=== PATIENT | male | born 1955 | race Caucasian/White ===

== ENCOUNTER 2019-10-19 13:49 | Inpatient (IN) | payer OTHER ==
[2019-10-19] MEDS ORDERED: SODIUM CHLORIDE 1,000 ML IV SCH ×2 (14:30→22:20)
[2019-10-19 14:53] LABS: INR 1.07 (0.83-1.09); PROTHROMBIN TIME (PATIENT) 12.6 SEC (9.7-13.0)
[2019-10-19 14:55] LABS: ACTIVATED PTT 29.3 SECONDS (25.2-36.5)
[2019-10-19 15:07] LABS: CHOLESTEROL 193 mg/dL (50-200); HDL CHOLESTEROL 58 mg/dL (40-60); LDL CHOLESTEROL (ONLY SJRH) 153 mg/dL (5-100); TRIGLYCERIDES 113 mg/dL (0-150)
--- NOTE | 2019-10-19 15:14 | PDOC ---
History of Present Illness - General Chief Complaint: CVA/TIA Stated Complaint: R/O SROKE Time Seen by Provider: 10/19/19 14:10 tPA Exclusion Checklist 0-3hr - Time Elapsed Date last known well: 10/18/19 Time last known well: 20:00 Elaspsed time: 1 Day(s) and 0 Hour(s) and 19 Minutes - Thrombolytic Therapy Candidate Is the patient eligible for Thrombolytic Therapy?: No - Ineligibility reason(s) Reasons No tPA given: Outside of window - delayed arrival NIH Stroke Scale - Last Known Well Date/Time & Onset Date Last Known Well: 10/18/19 Time Last Known Well: 20:00 - Initial Evaluation Level of consciousness: Alert Ask patient the month and their age: Answers both correctly Ask patient to open & close eyes; make fist and let go: Obeys both correctly Best gaze (horizontal eye movement): Forced deviation Visual field testing: Complete hemianopia Facial paresis (Show teeth/raise eyebrows/close eyes tight): Complete paralysis of one or both sides (Upper and lower face) Motor Function: Left Arm: Normal Motor Function: Right Arm: Normal (extends arm 90 (or 45) degrees for 10 seconds without drift Motor Function: Left Leg: Normal (extends leg 30 degrees for 5 seconds without drift) Motor Function: Right Leg: Normal (extends leg 30 degrees for 5 seconds without drift) Limb Ataxia: Present in two limbs Sensory(Use pinprick test arms,legs,trunk,face/side to side): Normal Best language (Describe picture, name items, read sentences): No Aphasia Dysarthria (read several words): Mild to moderate slurring of words Extinction and Inattention: No abnormality - Total Score NIH Stroke Scale Score: 10 Past History - Past Medical History Allergies/Adverse Reactions: Allergies Allergy/AdvReac Type Severity Reaction Status Date / Time No Known Allergies Allergy Verified 10/19/19 14:12 Home Medications: Ambulatory Orders Hydrochlorothiazide [Hctz -] 25 mg PO DAILY 10/19/19 COPD: No - Psycho Social/Smoking Cessation Hx Smoking History: Never smoked Information on smoking cessation initiated: No *Physical Exam - Vital Signs Last Vital Signs Temp Pulse Resp BP Pulse Ox 98 F 90 18 167/97 98 10/19/19 14:16 10/19/19 14:06 10/19/19 14:06 10/19/19 14:06 10/19/19 14:40 ED Treatment Course - LABORATORY CBC & Chemistry Diagram: 10/19/19 17:23 10/19/19 14:20 - ADDITIONAL ORDERS Additional order review: Laboratory Results 10/19/19 10/19/19 14:20 14:20 PT with INR 12.60 INR 1.07 PTT (Actin FS) 29.3 Triglycerides 113 Cholesterol 193 Total LDL Cholesterol 153 H HDL Cholesterol 58 10/19/19 14:20 RBC Cancelled MCV Cancelled MCHC Cancelled RDW Cancelled MPV Cancelled Neutrophils % Cancelled Lymphocytes % Cancelled Monocytes % Cancelled Eosinophils % Cancelled Basophils % Cancelled - RADIOLOGY Radiology Studies Ordered: Category Date Time Status SINUS CT WITH CONTRAST [CT] Stat CT Scan 10/19/19 15:11 Ordered Medical Decision Making - Medical Decision Making 10/19/19 15:14 HPI: 64yo M hx HTN (on HCTZ) BIBA from home with 1 brief self-limited episode of vertigo at 1200 yesterday, then gradual onset vertigo, nausea, and NB emesis xmultiple last PM at 1999, woke up this AM with constant vertigo not changed by movement, L-sided facial droop, blurred vision b/l worst in R eye, and L-sided hemianopia. LKN 1999. Last night vertigo was so bad he had trouble walking and had to crawl on hands and knees to bed. States did not have facial or vision problems last PM. Woke up this AM with vertigo and additional sx. Denies dysphagia, diplopia, photophobia, spots in vision, hearing loss, tinnitus, weakness in arms or legs, numbness or tingling, chest pain, palpitations, SOB, diaphoresis. Denies current vertigo or nausea. Denies smoking, cardiac hx, hx stroke, hx vertigo, recent travel, recent illness, sick contacts, cold or flu- like sx, fever, chills, fatigue, headache, numbness/tingling, cough, leg swelling, abdominal pain, blood in stool, diarrhea, constipation, dysuria, hematuria, confusion. Compliant on HCTZ, takes no other medications. PCP - Dr Merida [phone] ROS: Constitutional: Negative for chills, fever, fatigue, diaphoresis. HENT: Negative for sore throat, rhinorrhea, congestion. Eyes: Positive for blurry vision. Negative for visual disturbance. Respiratory: Negative for shortness of breath, cough, and wheezing. Cardiovascular: Negative for chest pain, palpitations, and leg swelling. Gastrointestinal: Positive for nausea and vomiting. Negative for abdominal pain, blood in stool, constipation, diarrhea. Genitourinary: Negative for dysuria, flank pain, and hematuria. Musculoskeletal: Negative for myalgias, back pain, and neck pain. Skin: Negative for rash. Neurological: Positive for vertigo, difficulty walking, L-sided facial droop, blurry vision, L-sided hemianopia. Negative for syncope, numbness and headaches. Psychiatric/Behavioral: Negative for behavioral problems and confusion. PE: Gen: Alert, NAD, comfortable-appearing. HEENT: PERRL, inability to abduct L eye and extreme difficulty in R eye abduction, dry MM, NCAT. No conjunctival pallor. Sclera are non-icteric. Oropharynx is clear. CV: Regular rate and rhythm. No murmurs, rubs, or gallops. PULM: No resp distress. CTAB, no wheezes, rales, or rhonchi. ABD: soft, NT/ND, no rebound tenderness or guarding, no CVA tenderness. BACK: No TTP of c/t/l-spine. No step-offs or deformities. MSK: No bony deformities. 2+ pulses in all extremities. NEURO: AAOx3. PERRL. CN 2-12 evaluated and not all intact: noted deficits are L homonymous hemianopia, complete L-sided facial paralysis (sensation intact), inability to abduct L eye and extreme difficulty in R eye abduction (can abduct momentarily then appears to be pulled back to center), difficult to assess tongue deviation due to facial droop. 5/5 strength in all extremities. No drift of legs or arms. Sensation to light touch intact in all extremities. No pronator drift. + bilateral dysmetria. +bilateral rotary nystagmus. Due to pt's diffi culty seeing/focusing on stationary object, unable to perform head impulse and test of skew deviation. EXTREMITIES: No cyanosis. No clubbing. No edema. No calf tenderness. PSYCH: Normal mood and thought pattern. SKIN: Warm and dry. Normal capillary refill. No rashes. No jaundice. MDM: 64yo M hx HTN BIBA from home with 1 brief self-limited episode of vertigo at 1200 yesterday, then gradual onset vertigo, nausea, and emesis xfew last PM at 1999, woke up this AM with vertigo, L-sided facial droop, blurred vision b/l, and L-sided hemianopia. LKN 1999. Hemodynamically stable, afebrile, no motor or sensory deficits in extremities, rotary nystagmus b/l, bilateral dysmetria, L-sided complete facial droop, L- sided homonymous hemianopia, inability to abduct L eye and extreme difficulty in R eye abduction, sensation intact, difficult to assess tongue deviation HINTS exam difficult to perform due to pt's inability to focus on object (my nose) in front of him. +rotary nystagmus, unable to perform head impulse and test of skew deviation. Exam consistent with palsy of L sack maker and VII, in addition to L-sided hemianopia, possible tongue deviation (possible CN XII deficit), and vestibular signs (possible CN VIII dysfunction vs cerebellar dysfunction). High concern for stroke including posterior cerebellar or brainstem. Also consider ICH/SAH, cavernous sinus thrombosis, aneurysm, metabolic derangement, vitamin deficiencies, anemia, Lyme, herpes zoster, malignancy/mass. Code quintero called. NIHSS prior to CTH and after CTH same: 10 -Not a TPA candidate due to outside window -CTH reviewed: mild volume loss and mild to moderate ventricular dilatation w/o CT e/o acute intracranial pathology. Correlate clinically to determine further evaluation and f/u. Mild chronic sinusitis. -EKG: NSR, 90bpm, normal intervals, normal axis, no e/o acute ischemia -CBC,CMP,Coags,Lipid profile,Cardiac profile,UA,T&S,Mg,Phos,ESR,CRP,TSH -optical scientist -Lyme -IVF -Consult neuro -Dispo: likely admit vs transfer pending w/u Spoke with Dr Singleton, recommended CT sinus venogram to r/o cavernous sinus thrombosis Spoke with Dr Soto about concern for brainstem or posterior cerebellar stroke - stated based on clinical concern, we could get MRI stroke protocol (limited faster study). -MRI stroke protocol -CT sinuses venogram to r/o cavernous sinus thrombosis 10/19/19 16:52 No changes. Pt comfortable. Took pt to MRI. 10/19/19 17:26 Exam unchanged. Pt states he is comfortable. MRI done. Took pt to CT. Rubin additional labs. 10/19/19 18:[address] Rangel on phone - appreciated update, agrees with admission. MRI reviewed: multiple acute infarctions in L cerebellar hemisphere, multiple infarctions in R and L occipital lobes more prominent in R side, infarcts most probably embolic in origin. Also noted ischemic chronic changes in white matter of both cerebral hemispheres sequela most probably to HTN or small vessel atherosclerosis. -Aspirin: given by me, pt swallowed sip of water and aspirin without difficulty, no gurgling or drooling or choking. -MRA w/o contrast -Cancel CT sinuses venogram due to known etiology of sx, per discussion between team and Dr Pinto -Not a candidate for thrombectomy Saw pt with Neurologist Dr Pinto. Involved nerves CN 6, 7, 10, 12: L-sided complete facial paralysis, homonymous hemianopia, no gag reflex (by tongue depressor), tongue deviation to right -Start heparin drip, per recommendation of Dr Pinto (no bolus, just drip), due to presumed embolic origin of infarcts. Discussed with pt. 10/19/19 19:08 Signed out to admitting team. Hemodynamically stable, no neurologic changes or new sx or nausea/vomiting/vertigo since arrival in ED. Pertinent neuro deficits: L-sided complete facial paralysis, L-sided homonymous hemianopia, no gag reflex, tongue deviation to right, slight dysarthria likely 2/2 L-sided facial paralysis. 10/19/19 20:19 CXR reviewed: no acute pathology Discharge - Discharge Information Problems reviewed: Yes Clinical Impression/Diagnosis: New cerebellar infarct Condition: Fair - Admission Yes - Follow up/Referral Referrals: ON STAFF,NOT [Primary Care Provider] - - Patient Discharge Instructions - Post Discharge Activity
[2019-10-19 15:24] LABS: ALBUMIN 3.9 g/dl (3.4-5.0); ALK PHOS 80 U/L (45-117); ANION GAP 8 MMOL/L (8-16); BILIRUBIN,TOTAL 0.7 mg/dL (0.2-1); BLOOD UREA NITROGEN 15.3 mg/dL (7-18); CHLORIDE 99 mmol/L (98-107); CO2 29 mmol/L (21-32); CREATININE 1.1 mg/dL (0.55-1.3); GLUCOSE,RANDOM 132 mg/dL (74-106); SGOT/AST 58 U/L (15-37); SGPT/ALT 30 U/L (13-61); SODIUM 136 mmol/L (136-145); TOT PROT 8.7 g/dl (6.4-8.2)
[2019-10-19] MEDS ORDERED: SODIUM CHLORIDE 0.9% 500 ML INFUS.BAG IV ONE ×2 (16:03→18:13)
--- NOTE | 2019-10-19 17:03 | PDOC ---
Documentation entered by Porsha Levine SCRIBE, acting as scribe for Ajith Arce MD. Ajith Arce MD: This documentation has been prepared by the Abner schaffer Adrianna, SCRIBE, under my direction and personally reviewed by me in its entirety. I confirm that the documentation accurately reflects all work, treatment, procedures, and medical decision making performed by me. Attending Attestation - Resident Resident Name: Sissy Madison - ED Attending Attestation I have performed the following: I have examined & evaluated the patient, The case was reviewed & discussed with the resident, I agree w/resident's findings & plan, Exceptions are as noted - HPI HPI: The patient is a 64 year old male, with a significant PMH of HTN, presents with vertigo since noon yesterday. Patient complains of sudden-onset room-spinning dizziness yesterday afternoon. Last night around 8pm, the patient additionally developed left-sided facial droop with changes in vision. Allergies: NKA, NKDA Surgical History: None reported Social History: No toxic habits PCP: NOS - Physicial Exam PE: 10/19/19 16:57 Patient is awake and alert, well-nourished, in no significant distress Normocephalic, atraumatic + Left facial palsy involving forehead, periorbital structures, left lower face and left perioral structures; + left abducens nerve palsy; rotatory nystagmus bilaterally No JVD, no carotid bruits CTA, RRR Motor is five 5 x 4; no pronation drift; Babinski is negative; - Medical Decision Making 10/19/19 17:02 64-year-old male with history of hypertension presents with left cranial nerve and VII palsies. Differential diagnosis includes CVA versus new onset diabetes versus Lyme disease. Will obtain CT of head followed by stat MRI. Will consider CT of sinuses with venous phase contrast to rule out cavernous sinus thrombosis. Case discussed with Dr. Gardner of neurology. Likely admission.
[2019-10-19] MEDS ORDERED: ASPIRIN 325 MG TABLET PO ONE (17:38)
[2019-10-19] MEDS ORDERED: ASPIRIN 325 MG ENTERIC COATED TABLET (FP) ONE (17:40)
[2019-10-19 18:02] LABS: MAGNESIUM 1.8 mg/dL (1.8-2.4); PHOSPHOROUS 2.1 mg/dL (2.5-4.9)
[2019-10-19 18:05] LABS: BASO % 0.2 % (0-2.0); HEMATOCRIT 46.2 % (35.4-49); HEMOGLOBIN 15.1 GM/dL (11.7-16.9); MCHC 32.8 g/dl (32.0-35.9); MEAN CELL VOLUME 85.5 fl (80-96); MEAN PLT VOLUME 8.3 fl (7.5-11.1); MONO % 5.7 % (3.8-10.2); NEUT % 77.1 % (42.8-82.8); PLATELET COUNT 220 K/MM3 (134-434); RBC 5.41 M/mm3 (4.00-5.60); RDW 14.1 % (11.9-15.9); WHITE BLOOD COUNT 15.9 K/mm3 (4.0-10.0)
[2019-10-19] MEDS ORDERED: HEPARIN NA (PORCINE) 5,000 UNITS/ML 1ML VIAL IVPUSH PRN ×2 (18:19)
[2019-10-19] MEDS ORDERED: HEPARIN INFUSION - 25,000 UNITS/500 ML INFUS.BAG IVPB ONE (18:44)
--- NOTE | 2019-10-19 18:48 | CON.NEURO ---
Consult Consult Specialty:: [facility] Referred by:: ER Reason for Consultation:: CVA - History of Present Illness History of Present Illness: this is a very pleasant 64-year-old right-handed man with history of high blood pressure no history of smoking presented to the emergency room with a chief complaint of sudden onset of spinning sensation and dizziness. I spoke to the emergency room physician patient was not a candidate for TPA stroke protocol was initiated patient was noted with left facial droop. Patient was also noted with double vision. Patient was seen in the emergency room stepwise hemodynamically was stable CAT scan was noted we did an MRI of the brain. - History Source History Provided By: Patient Limitations to Obtaining History: No Limitations - Smoking History Smoking history: Never smoked Home Medications - Allergies Allergies/Adverse Reactions: Allergies Allergy/AdvReac Type Severity Reaction Status Date / Time No Known Allergies Allergy Verified 10/19/19 14:12 Family Medical History Family History: Unremarkable Review of Systems - Review of Systems Neurological: reports: Headache, Incoordination, Numbness, Parasthesia Physical Exam-Neuro Vital Signs: Vital Signs Temperature 98 F 10/19/19 14:16 Pulse Rate 86 10/19/19 16:14 Respiratory Rate 20 10/19/19 16:14 Blood Pressure 148/92 10/19/19 16:14 O2 Sat by Pulse Oximetry (%) 100 10/19/19 16:14 Constitutional: Yes: Well Nourished Neck: Yes: WNL Cardiovascular: Yes: WNL Respiratory: Yes: WNL Labs: CBC, BMP 10/19/19 17:23 10/19/19 14:20 INR, PTT INR 1.07 (0.83-1.09) 10/19/19 14:20 - Neuro Exam Level Of Consciousness: Yes: Oriented to Person, Oriented to Place, Oriented to Time Eyes: Yes: PERRLA Speech: WNL Dominant Hand: Right Cranial Nerves II-XII Intact: No (lleft sixth nerve palsy. LeftVII nerve biopsy no gag positive left homonymous) Gag: Present DTR's: 1+ Left Bicep, 1+ Right Bicep, 1+ Left Tricep, 1+ Right Tricep, 1+ Left Brachioradialis, 1+ Right Brachioradialis Response to light touch: Normal Response to pain prick: Normal Response to temperature: Normal Imaging - Results X-ray: Image Reviewed Cat Scan: Image Reviewed MRI: Image Reviewed Problem List - Problems (1) New cerebellar infarct Code(s): I63.9 - CEREBRAL INFARCTION, UNSPECIFIED Assessment/Plan mRI consistent with multiple embolic strokeprobably cardiac source rule out cardiac arrhythmia that involves the left 6 and 7 cranial nerve exiting the pontine region right occipital stroke with homonymous hemianopsia i decided not to do CT angiogram because the patient is not a candidate for thrombectomy 1. Rule out embolic stroke 2. Stroke prevention 1. IV heparin bolus keep the PTT between 50 and 70 . RHEA . Physical therapy . Nothing by mouth . Speech and swallow evaluation 6. MRA of the brain and neck 7. Homocystine level. 8. Holter monitor Thank you very much for allowing me to be part of this patient neurological care Pamella Pinto M.D., MSc [facility] [address] [place] [address] Office
[2019-10-19] MEDS: HEPARIN INFUSION - 25,000 UNITS/500 ML INFUS.BAG IVPB SCH (18:58)
--- NOTE | 2019-10-19 20:11 | PN ---
Teaching Attending Note Name of Resident: Leeanne Hussein ATTENDING PHYSICIAN STATEMENT I saw and evaluated the patient. I reviewed the resident's note and discussed the case with the resident. I agree with the resident's findings and plan as documented. SUBJECTIVE: 64-year-old male with history of hypertension complained of vertigo which started on 10/17 around noon, associated with ataxia and later developed left facial droopiness and some blurry vision. Patient continued to go back with his daily activities including going to work. The next day developed some nausea and vomiting and then was prompted to seek medical attention by his daughter. Patient denied any focal weaknesses or loss of sensation but reports that he does feel unsteady on his feet when walking.Dr. Gardner was consulted from the emergency room.Patient was a code quintero in the emergency room, was not a candidate for TPA. OBJECTIVE: Last Vital Signs Temp Pulse Resp BP Pulse Ox 98 F 81 18 148/72 97 10/20/19 01:30 10/20/19 01:30 10/20/19 01:30 10/20/19 01:30 10/19/19 22:30 On physical exam patient was not in any acute distress. He had left lateral rectus muscle palsy, unable to perform gaze to left. Left upper and lower facial muscle paralysis. Sensation face was intact bilaterally.Motor was 5 out of 5 in all extremities, gross sensation intact in all extremities. Negative for patellar, bicipital hyperreflexia. Negative Babinski signs bilaterally. Normal [id number] and fitch test bilaterally. NIH stroke scale initially in the ER was 9. Abnormal Lab Results 10/19/19 10/19/19 10/19/19 14:20 14:20 17:23 WBC 15.9 H Absolute Neuts (auto) 12.3 H PTT (Actin FS) Random Glucose 132 H Phosphorus 2.1 L AST 58 H C-Reactive Protein Total Protein 8.7 H Total LDL Cholesterol 153 H 10/19/19 10/20/19 17:23 00:35 WBC Absolute Neuts (auto) PTT (Actin FS) 37.7 H Random Glucose Phosphorus AST C-Reactive Protein 0.7 H Total Protein Total LDL Cholesterol Imaging studies were reviewedbrain MRImultiple acute infarctsleft cerebellar hemisphere, multiple infarctions in the right and left supra lobes more prominent on the right side. These infarcts are probably embolic in origin EKG showed Normal sinus rhythm ASSESSMENT AND PLAN: 64-year-old male with bilateral cerebellar embolic strokes as described above with new neurological deficits as described in physical exam. Already evaluated by neurology and admitted to stroke unit. Admit to stroke unit Neurology consult Transthoracic echo N.p.o. Permissive hypertension Aspirin High-dose statin Aggressive physical therapy Speech and swallow evaluation Neurochecks every 4 hours Carotid Doppler bilaterally Started on anticoagulation with heparin drip
--- NOTE | 2019-10-19 21:36 | HP ---
CHIEF COMPLAINT: Dizziness, facial droop PCP:Dr. Merida HISTORY OF PRESENT ILLNESS: 64M PMH HTN who presents today after 1 day of dizziness and new onset facial droop. Patient reports going home on 10/17 for lunch break and feeling not like himself and some dizziness. He was able to return to work and finish his duties. He returned home between 5-6pm on 10/17 and at that time he describes the room to be spinning and shortly thereafter he began to vomit. He called his daughter to come visit him and help, and by the time she arrived he was unable to walk and had to crawl to the door to let her in. He had numerous episodes of NBNB emesis and eventually fell asleep. He woke up today and his daughter noted new left sided facial droop which prompted them to come to the ED. He also notes having blurry vision which began last night. He denies any chest pain, shortness of breath, nausea, vomiting, diarrhea, paresthesias, or numbness. He has never had this constellation of symptoms occur before. ER course was notable for: (1) CT head was completed- no acute pathology noted. Brain MRI done- multiple acute infarctions: left cerebellar hemisphere, multiple infarcts right and left occipatal lobes. (2) NIH stroke scale completed by ED was 10 (3) Brain MRA was completed which showed: Unremarkable MR angiogram of the head/[place] Recent Travel: None PAST MEDICAL HISTORY: HTN FAMILY MEDICAL HISTORY: CVA, HTN in mother's side. 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 Lives alone at home. Allergies No Known Allergies Allergy (Verified 10/19/19 14:12) HOME MEDICATIONS: Home Medications Medication Instructions Recorded Hydrochlorothiazide [Hctz -] 25 mg PO DAILY 10/19/19 REVIEW OF SYSTEMS CONSTITUTIONAL: Absent: fever, chills, diaphoresis, generalized weakness, malaise, loss of appetite, weight change HEENT: Absent: rhinorrhea, nasal congestion, throat pain, throat swelling, difficulty swallowing, mouth swelling, ear pain, eye pain, visual changes CARDIOVASCULAR: Absent: chest pain, syncope, palpitations, irregular heart rate, lightheadedness, peripheral edema RESPIRATORY: Absent: cough, shortness of breath, dyspnea with exertion, orthopnea, wheezing, stridor, hemoptysis GASTROINTESTINAL: Absent: abdominal pain, abdominal distension, nausea, vomiting, diarrhea, constipation, melena, hematochezia GENITOURINARY: Absent: dysuria, frequency, urgency, hesitancy, hematuria, flank pain, genital pain MUSCULOSKELETAL: Absent: myalgia, arthralgia, joint swelling, back pain, neck pain SKIN: Absent: rash, itching, pallor HEMATOLOGIC/IMMUNOLOGIC: Absent: easy bleeding, easy bruising, lymphadenopathy, frequent infections ENDOCRINE: Absent: unexplained weight gain, unexplained weight loss, heat intolerance, cold intolerance NEUROLOGIC: Present: dizziness, unsteady gait Absent: headache, focal weakness or paresthesias, seizure, mental status changes, bladder or bowel incontinence PSYCHIATRIC: Absent: anxiety, depression, suicidal or homicidal ideation, hallucinations. PHYSICAL EXAMINATION Vital Signs - 24 hr 10/19/19 10/19/19 10/19/19 14:06 14:16 14:40 Temperature 98 F Pulse Rate 90 Pulse Rate [ Right Radial] Respiratory 18 Rate Blood Pressure 167/97 Blood Pressure [Left Arm] O2 Sat by Pulse 100 98 Oximetry (%) 10/19/19 16:14 Temperature Pulse Rate Pulse Rate [ 86 Right Radial] Respiratory 20 Rate Blood Pressure Blood Pressure 148/92 [Left Arm] O2 Sat by Pulse 100 Oximetry (%) GENERAL: Awake, alert, and fully oriented, in no acute distress. HEAD: Normal with no signs of trauma. EYES: Pupils equal, round and reactive to light, lateral gaze palsy. EARS, NOSE, THROAT: Ears normal, nares patent, oropharynx clear without exudates. Moist mucous membranes. NECK: Normal range of motion, supple without lymphadenopathy, JVD, or masses. LUNGS: CTAB HEART: Regular rate and rhythm, normal S1 and S2 without murmur, rub or gallop. ABDOMEN: Soft, nontender, not distended, normoactive bowel sounds, no guarding, no rebound, no masses. MUSCULOSKELETAL: Normal range of motion at all joints. No bony deformities or tenderness. No CVA tenderness. UPPER EXTREMITIES: 2+ pulses, warm, well-perfused. No cyanosis. No clubbing. No peripheral edema. LOWER EXTREMITIES: 2+ pulses, warm, well-perfused. No calf tenderness. No peripheral edema. NEUROLOGICAL: Cranial Nerve palsy, Cranial nerve VII palsy on the left side. Dysarthric. Left sided partial hemianopia. NIH 9 PSYCHIATRIC: Cooperative. Good eye contact. Appropriate mood and affect. SKIN: Warm, dry, normal turgor, no rashes or lesions noted, normal capillary re fill. Laboratory Results - last 24 hr 10/19/19 10/19/19 10/19/19 14:20 14:20 14:20 WBC Cancelled Corrected WBC (auto) Cancelled RBC Cancelled Hgb Cancelled Hct Cancelled MCV Cancelled MCH Cancelled MCHC Cancelled RDW Cancelled Plt Count Cancelled MPV Cancelled Absolute Neuts (auto) Cancelled Neutrophils % Cancelled Lymphocytes % Cancelled Monocytes % Cancelled Eosinophils % Cancelled Basophils % Cancelled Nucleated RBC % Cancelled Platelet Estimate Cancelled Platelet Comment Cancelled ESR PT with INR 12.60 INR 1.07 PTT (Actin FS) 29.3 Sodium Potassium Chloride Carbon Dioxide Anion Gap BUN Creatinine Est GFR (CKD-EPI)AfAm Est GFR (CKD-EPI)NonAf POC Glucometer Random Glucose Calcium Phosphorus Magnesium Total Bilirubin AST ALT Alkaline Phosphatase Creatine Kinase Creatine Kinase Index CK-MB (CK-2) Troponin I C-Reactive Protein Total Protein Albumin Triglycerides 113 Cholesterol 193 Total LDL Cholesterol 153 H HDL Cholesterol 58 TSH Blood Type Antibody Screen 10/19/19 10/19/19 10/19/19 14:20 14:53 17:23 WBC 15.9 H Corrected WBC (auto) RBC 5.41 Hgb 15.1 Hct 46.2 MCV 85.5 MCH 28.0 MCHC 32.8 RDW 14.1 Plt Count 220 MPV 8.3 Absolute Neuts (auto) 12.3 H Neutrophils % 77.1 Lymphocytes % 17.0 Monocytes % 5.7 Eosinophils % 0.0 Basophils % 0.2 Nucleated RBC % 0 Platelet Estimate Platelet Comment ESR PT with INR INR PTT (Actin FS) Sodium 136 Potassium 5.0 Chloride 99 Carbon Dioxide 29 Anion Gap 8 BUN 15.3 Creatinine 1.1 Est GFR (CKD-EPI)AfAm 81.79 Est GFR (CKD-EPI)NonAf 70.57 POC Glucometer Random Glucose 132 H Calcium 9.0 Phosphorus 2.1 L Magnesium 1.8 Total Bilirubin 0.7 AST 58 H ALT 30 Alkaline Phosphatase 80 Creatine Kinase 219 Creatine Kinase Index 1.0 CK-MB (CK-2) 2.2 Troponin I < 0.02 C-Reactive Protein Total Protein 8.7 H Albumin 3.9 Triglycerides Cholesterol Total LDL Cholesterol HDL Cholesterol TSH 2.40 Blood Type O POSITIVE Antibody Screen Negative 10/19/19 10/19/19 10/19/19 17:23 17:23 21:02 WBC Corrected WBC (auto) RBC Hgb Hct MCV MCH MCHC RDW Plt Count MPV Absolute Neuts (auto) Neutrophils % Lymphocytes % Monocytes % Eosinophils % Basophils % Nucleated RBC % Platelet Estimate Platelet Comment ESR 12 PT with INR INR PTT (Actin FS) Sodium Potassium Chloride Carbon Dioxide Anion Gap BUN Creatinine Est GFR (CKD-EPI)AfAm Est GFR (CKD-EPI)NonAf POC Glucometer 128 Random Glucose Calcium Phosphorus Magnesium Total Bilirubin AST ALT Alkaline Phosphatase Creatine Kinase Creatine Kinase Index CK-MB (CK-2) Troponin I C-Reactive Protein 0.7 H Total Protein Albumin Triglycerides Cholesterol Total LDL Cholesterol HDL Cholesterol TSH Blood Type Antibody Screen ASSESSMENT/PLAN: 64 M PMH HTN presenting with CVA affecting CN and VII. 1) CVA - Head CT negative - Brain MRI shows multiple acute infarctions, left cerebellar hemisphere, multiple infarcts right and left occipital lobes. - Brain MRA unremarkable as per preliminary read - Permissive HTN, keep BP <180 for first 24 hours - Holding home medication of HCTZ, will restart BP meds when appropriate - Echo to rule out cardiogenic cause - Carotid doppler - Continous caridac monitoring. May require home holter monitor - Homocysteine level - Speech and Swallow evaluation - Physical Therapy ordered - NPO - Neurochecks Q4H - Aspirin 325 given, continue ASA 81 mg - Atorvastatin 80 mg HS given. Continue - Started on IV Heparin drip, high suspicion emoblic stroke due to underlying arrythmia. - Neurology consulted- Dr. Pinto. Appreciate recs 2) Hx of HTN - Holding meds, will continue to monitor - Restart when appropriate DVT: Heparin Drip Started F: NS @ 75 ml/hr E: Monitor CMP N: NPO until swallow evaluation Dispo: Admitted to telemetry unit. Visit type - Emergency Visit Emergency Visit: Yes ED Registration Date: 10/19/19 Care time: The patient presented to the Emergency Department on the above date and was hospitalized for further evaluation of their emergent condition. - New Patient This patient is new to me today: Yes Date on this admission: 10/19/19 - Critical Care Critical Care patient: No ATTENDING PHYSICIAN STATEMENT I saw and evaluated the patient. I reviewed the resident's note and discussed the case with the resident. I agree with the resident's findings and plan as documented. SUBJECTIVE: OBJECTIVE: ASSESSMENT AND PLAN:
[2019-10-19] MEDS: ATORVASTATIN CA 80 MG TABLET (FP) PO SCH (22:12)
[2019-10-19] MEDS ORDERED: ATORVASTATIN CA 80 MG TABLET (FP) ONE (22:15)
[2019-10-19] MEDS ORDERED: SODIUM PHOSPHATE - 15 MM in SODIUM CHLORIDE 250 ML IVPB ONE (22:20)
[2019-10-20 01:06] VITALS: BMI 32.8
--- NOTE | 2019-10-20 01:45 | PN.NIHSS ---
NIH Stroke Scale - Last Known Well Date/Time & Onset Date Last Known Well: 10/18/19 Time Last Known Well: 17:00 - Initial Evaluation Level of consciousness: Alert Ask patient the month and their age: Answers both correctly Ask patient to open & close eyes; make fist and let go: Obeys one correctly Best gaze (horizontal eye movement): Forced deviation Visual field testing: Partial hemianopia Facial paresis (Show teeth/raise eyebrows/close eyes tight): Complete paralysis of one or both sides (Upper and lower face) Motor Function: Left Arm: Normal Motor Function: Right Arm: Normal (extends arm 90 (or 45) degrees for 10 seconds without drift Motor Function: Left Leg: Normal (extends leg 30 degrees for 5 seconds without drift) Motor Function: Right Leg: Normal (extends leg 30 degrees for 5 seconds without drift) Limb Ataxia: No ataxia Sensory(Use pinprick test arms,legs,trunk,face/side to side): Normal Best language (Describe picture, name items, read sentences): Mild to moderate aphasia Dysarthria (read several words): Mild to moderate slurring of words Extinction and Inattention: No abnormality - Total Score NIH Stroke Scale Score: 9
[2019-10-20 07:36] LABS: BASO % 0.4 % (0-2.0); EOS % 1.4 % (0-4.5); HEMATOCRIT 39.6 % (35.4-49); HEMOGLOBIN 13.5 GM/dL (11.7-16.9); LYMPH % 29.5 % (8-40); MCH 28.5 pg (25.7-33.7); MCHC 34.1 g/dl (32.0-35.9); MEAN CELL VOLUME 83.7 fl (80-96); MEAN PLT VOLUME 8.6 fl (7.5-11.1); MONO % 7.7 % (3.8-10.2); PLATELET COUNT 209 K/MM3 (134-434); RBC 4.73 M/mm3 (4.00-5.60); RDW 14.1 % (11.9-15.9); WHITE BLOOD COUNT 12.5 K/mm3 (4.0-10.0)
[2019-10-20 08:04] LABS: ALBUMIN 3.3 g/dl (3.4-5.0); BILIRUBIN,TOTAL 0.9 mg/dL (0.2-1); BLOOD UREA NITROGEN 14.6 mg/dL (7-18); CALCIUM 8.5 mg/dL (8.5-10.1); CREATININE 0.9 mg/dL (0.55-1.3); PHOSPHOROUS 3.1 mg/dL (2.5-4.9); POTASSIUM 3.1 mmol/L (3.5-5.1); TOT PROT 6.8 g/dl (6.4-8.2)
[2019-10-20] MEDS: ASPIRIN COATED 81 MG TABLET.EC PO SCH (10:12)
[2019-10-20] MEDS: KCL 10 MEQ IVPB 10 MEQ/100 ML INFUS.BAG IVPB SCH ×3 (10:17→12:26)
--- NOTE | 2019-10-20 11:13 | CONSULT ---
Admitting History and Physical - Primary Care Physician PCP: Clemencia Barrow - Admission History of Present Illness: Per EMR- 64M PMH HTN who presents today after 1 day of dizziness and new onset facial droop. Patient reports going home on 10/17 for lunch break and feeling not like himself and some dizziness. He was able to return to work and finish his duties. He returned home between 5-6pm on 10/17 and at that time he describes the room to be spinning and shortly thereafter he began to vomit. He called his daughter to come visit him and help, and by the time she arrived he was unable to walk and had to crawl to the door to let her in. He had numerous episodes of NBNB emesis and eventually fell asleep. He woke up today and his daughter noted new left sided facial droop which prompted them to come to the ED. He also notes having blurry vision which began last night. He denies any chest pain, shortness of breath, nausea, vomiting, diarrhea, paresthesias, or numbness. He has never had this constellation of symptoms occur before. ER course was notable for: (1) CT head was completed- no acute pathology noted. Brain MRI done- multiple acute infarctions: left cerebellar hemisphere, multiple infarcts right and left occipatal lobes. (2) NIH stroke scale completed by ED was 10 (3) Brain MRA was completed which showed: Unremarkable MR angiogram of the head/[place] Per neurology-MRI consistent with multiple embolic stroke, probably cardiac source rule out cardiac arrhythmia that involves the left 6 and 7 cranial nerve exiting the pontine region right occipital stroke with homonymous hemianopsia At present, pt moving all extremities, speech/language WNL. He denies double vision. He sees well with left eye in isolation but "blurry" with right eye in isolation. He is missing his RX glasses which he needs to see. Family called and they dont have them. Reviewed with RN- to call ED/radiology. The glasses are [employer] with prescription. History Source: Patient, Medical Record Limitations to Obtaining History: No Limitations - Smoking History Smoking history: Never smoked Have you smoked in the past 12 months: No - Alcohol/Substance Use Hx Alcohol Use: No History - Admission Reason For Visit: NEW INFARCTION OF CEREBELLUM - Diagnostics X-ray: Report Reviewed CT Scan: Report Reviewed MRI: Report Reviewed - General Mental Status: Alert and Oriented, Awake and Alert, Able to Follow Commands Attention: Intact Ability to Follow Directions: Excellent Head/Neck Control: WFL - Hearing Hearing: Functional Hearing: Normal Hearing Aide: No With Patient: No Speech Evaluation - Communication Primary Language: [place] Oral Expression Ability: Yes: Mild Impairment (let facial complete para) - Speech Production Intelligibility: Yes: Mildly Impaired - Speech Characteristics Voice Loudness: Normal Voice Pitch: Yes: Normal Voice Phonatory-based Quality: Yes: Normal Speech Pattern: Normal Speech Clarity: < 100% Nasal Resonance: Normal Articulation: Yes: Imprecise (slight, sec to left facial) Rate of Speech: Intact - Language/Auditory Comprehension Follows: Yes: 2 Stage Simple Commands Observation: Able to respond to yes/no queries: Yes, Yes/No Confusion: No, Comprehends Conversational Speech: Yes - Language/Verbal Expression Able to Respond to Simple Queries: Yes: WNL Able to Communicate Wants and Needs: Yes: WNL Functional Communication Status: Yes: WNL Attention: Yes: Intact - Memory/Perception intermediate accountant Memory: Yes: WNL Short Term Memory: Yes: WNL - Swallow Evaluation/Bedside Assessment Current Nutritional Intake: NPO Oral Secretions: Yes: WFL Dentition: Yes: Adequate Facial Symmetry at Rest: Facial Droop Left Facial Symmetry on Retraction: Facial Droop Left (no retraction-Left upper/lower facial weakness, unable to close left eye or elevate left eyebrow.) Against Resistance Opening: Normal Against Resistance Closing: Normal Pucker Lips: Droops Left Smile: Droops Left Lingual Movement: Symmetric Lingual Speed of Movement: Normal Lingual Movement Strgth Against Opposition: Normal Lingual Movement Characteristics: Normal Velopharyngeal Movement: Normal Laryngeal Elevation: WFL Laryngeal Movement: Able to Palpate Rate of Intake: WFL Bolus Size: WFL Labial Seal: Impaired Left (No drooling but anterior spillage when drinks) Chewing: Impaired (concern for biting left cheek with mastication, but chewing is efficient) Oral Prep Time: WFL A-P Transit: WFL Timing of Swallow: WFL Coughing/Throat Clear: No Change in Voice: No Recommendations - Speech Evaluation, Impression/Plan Impression: no left facial retraction/pursing-Left upper and lower facial weakness, unable to close left eye or elevate left eyebrow. Concern for biting left cheek with mastication, but chewing is efficient. Swallow is brisk. Voice euphonic. c/o blurry right eye, but RX glassess missing. Good vision with left eye. Identifies fingers bilaterally. - Dysphagia Impressions/Plan Swallowing Skills: WF Dysphagia Impressions: No Impairment *Silent aspiration: cannot be R/O at bedside Dysphagia Treatment Plan: Clear Pocket Food, Trial Feedings, Elevate HOB during feed, OOB for meals, OOB for 1 h. after meals Recommendations: Modified Barium Swallow (only if cough, congestion, fever) - Recommendations Diet Consistency: Dysphagia Minced (trial, Encourage pt to chew on right side) Liquids: Thin Liquids (straw usage to reduce spillage)
[2019-10-20] MEDS ORDERED: POTASSIUM CHLORIDE TABS 20 MEQ TABLET.ER (FP) PO ONE ×2 (14:00→20:00)
--- NOTE | 2019-10-20 14:02 | EKG ---
Test Reason : Blood Pressure : / mmHG Vent. Rate : 090 BPM Atrial Rate : 090 BPM P-R Int : 170 ms QRS Dur : 090 ms QT Int : 382 ms P-R-T Axes : 028 -14 018 degrees QTc Int : 467 ms NORMAL SINUS RHYTHM POSSIBLE LEFT ATRIAL ENLARGEMENT BORDERLINE ECG NO PREVIOUS ECGS AVAILABLE Confirmed by YONATAN ZAMAN, FAVIAN ([id number]) on 10/20/2019 2:01:52 PM Referred By: Confirmed By:FAVIAN TAM MD
--- NOTE | 2019-10-20 15:48 | ECHO ---
Name: JUAN, BETH Exam:Adult Echocardiogram Study Date: 10/20/2019 12:21 PM Age: 64 yrs Reason For Study: r/o cardiogenic source of stroke Height: 67 in Weight: 220 lb BSA: 2.1 m2 MMode/2D Measurements & Calculations IVSd: 1.1 cm Ao root diam: 3.4 cm LVIDd: 5.1 cm LA dimension: 4.5 cm LVIDs: 3.2 cm ACS: 2.0 cm LVPWd: 1.1 cm EDV(Ilsa): 122.4 ml LAV (MOD-bp): 57.0 ml ESV(Ilsa): 42.4 ml TAPSE: 2.3 cm RV S Zhao: 21.8 cm/sec Doppler Measurements & Calculations MV E max zhao: 77.5 cm/sec Ao V2 max: 164.2 cm/sec MV A max zhao: 63.7 cm/sec Ao max P.8 mmHg MV E/A: 1.2 Ao V2 mean: 107.2 cm/sec MV dec time: 0.18 sec Ao mean P.2 mmHg Ao V2 VTI: 30.2 cm LV V1 max P.7 mmHg TR max zhao: 263.3 cm/sec LV V1 mean P.3 mmHg TR max P.7 mmHg LV V1 max: 108.6 cm/sec LV V1 mean: 71.3 cm/sec LV V1 VTI: 21.1 cm PA V2 max: 104.5 cm/sec PI end-d zhao: 89.6 cm/sec PA max P.4 mmHg PA acc slope: 355.1 cm/sec2 PA acc time: 0.16 sec Med Peak E' Zhao: 5.2 cm/sec PA pr(Accel): 7.7 mmHg Med E/e': 15.0 Lat Peak E' Zhao: 9.5 cm/sec Lat E/e': 8.2 Pulm Sys Zhao: 77.5 cm/sec Pulm Segura Zhao: 65.2 cm/sec Pulm S/D: 1.2 Procedure A complete two-dimensional transthoracic echocardiogram was performed (2D, M-mode, Doppler and color flow Doppler). Left Ventricle The left ventricular size, thickness and function are normal. The left ventricular ejection fraction is normal. Ejection Fraction = 60-65%. The left ventricular wall motion is normal. Right Ventricle The right ventricle is normal in size and function. Atria Normal left and right atrial size and function. Mitral Valve There is trace mitral regurgitation. Tricuspid Valve No tricuspid regurgitation. There was insufficient TR detected to calculate RV systolic pressure. Aortic Valve The aortic valve is trileaflet. No hemodynamically significant valvular aortic stenosis. No aortic regurgitation is present. Pulmonic Valve Trace pulmonic valvular regurgitation. Great Vessels The aortic root is normal size. Pericardium/Pleura There is no pericardial effusion. Interpretation Summary The left ventricular size, thickness and function are normal The right ventricle is normal in size and function. There is trace mitral regurgitation. Trace pulmonic valvular regurgitation. MD Mejia Johnson 10/20/2019 03:47 PM
--- NOTE | 2019-10-20 15:54 | PN ---
Progress Note, Physician History of Present Illness: 64-year-old male with PMHx of HTN complained of vertigo which started on 3/ ar ound noon, associated with ataxia and later developed left facial droopiness and some blurry vision. Patient continued to go back with his daily activities including going to work. The next day developed N/V and then sought medical attention. Patient admitted with CVA. Today: Patient seen and examined at bedside in NAD Patient was getting TTE Had no active c/o was alert and conversing. - Current Medication List Current Medications: Active Medications Aspirin (Ecotrin -) 81 mg PO DAILY [facility] Last Admin: 10/20/19 10:12 Dose: 81 mg Documented by: Atorvastatin Calcium (Lipitor -) 80 mg PO HS JOHN PAUL Last Admin: 10/19/19 22:12 Dose: 80 mg Documented by: Heparin Sodium (Porcine) (Heparin -) 1,000 unit IVPUSH PRN PRN PRN Reason: Heparin Heparin Sodium (Porcine) (Heparin -) 5,000 unit IVPUSH PRN PRN PRN Reason: Heparin Last Admin: 10/20/19 01:35 Dose: 5,000 unit Documented by: Heparin Sodium/Dextrose (Heparin Infusion -) 25,000 units in 500 mls @ 20 mls/hr IVPB TITR JOHN PAUL; Protocol Last Titration: 10/20/19 11:50 Dose: 1,150 units/hr, 23 mls/hr Documented by: Sodium Chloride (Normal Saline -) 1,000 mls @ 75 mls/hr IV ASDIR JOHN PAUL - Objective Vital Signs: Vital Signs Temperature 98.1 F 10/20/19 14:00 Pulse Rate 70 10/20/19 14:00 Respiratory Rate 18 10/20/19 14:00 Blood Pressure 150/91 10/20/19 14:00 O2 Sat by Pulse Oximetry (%) 98 10/20/19 09:00 Constitutional: Yes: Well Nourished Cardiovascular: Yes: WNL Respiratory: Yes: WNL Gastrointestinal: Yes: WNL Neurological: Yes: Facial Droop Labs: CBC, BMP 10/20/19 05:33 10/20/19 05:33 INR, PTT INR 1.07 (0.83-1.09) 10/19/19 14:20 Impression/Plan Impression/Plan: 1- CVA Rule out Embolic stroke Neuro on board PT /OT Speech and swallow Holter monitor and Tele monitor TTE ASA 81 mg qd High intensity Statin Heparin drip per neuro recs Can d/c fluids when cleared for diet 2- HTN Monitor BP 3- Supportive care DVT Px- heparin drip as above Visit type - Emergency Visit Emergency Visit: Yes ED Registration Date: 10/19/19 Care time: The patient presented to the Emergency Department on the above date and was hospitalized for further evaluation of their emergent condition. - New Patient This patient is new to me today: Yes Date on this admission: 10/20/19 - Critical Care Critical Care patient: No - Discharge Referral Referred to [facility] Yes
--- NOTE | 2019-10-20 16:05 | EKG ---
Test Reason : Blood Pressure : / mmHG Vent. Rate : 072 BPM Atrial Rate : 072 BPM P-R Int : 156 ms QRS Dur : 084 ms QT Int : 414 ms P-R-T Axes : 026 -21 -01 degrees QTc Int : 453 ms NORMAL SINUS RHYTHM NORMAL ECG WHEN COMPARED WITH ECG OF 19-OCT-2019 14:21, NO SIGNIFICANT CHANGE WAS FOUND Confirmed by FAVIAN TAM MD ([id number]) on 10/20/2019 4:04:34 PM Referred By: Confirmed By:FAVIAN TAM MD
[2019-10-20] MEDS: HEPARIN INFUSION - 25,000 UNITS/500 ML INFUS.BAG IVPB SCH (17:05)
--- NOTE | 2019-10-20 17:19 | PN ---
Physical Exam: SUBJECTIVE: Patient seen and examined. Asymptomatic currently, afebrile. no acute changes. Denies f/c/n/v/d/sob OBJECTIVE: Vital Signs Period Temp Pulse Resp BP Sys/Segura Pulse Ox Last 24 Hr 98 F-98.2 F 70-81 18-20 148-156/72-98 97-98 GENERAL: AOx3, NAD HEAD: Normal with no signs of trauma. EYES: PERRLA, lateral gaze palsy present on the left eye. EARS, NOSE, THROAT: Ears normal, nares patent, oropharynx clear without exudates. Moist mucous membranes. NECK: Normal range of motion, supple without lymphadenopathy, JVD, or masses. LUNGS: CTAB, no wheezes, rubs, crackles HEART: Regular rate and rhythm, normal S1 and S2 without murmur, rub or gallop. ABDOMEN: Soft, nontender, not distended, normoactive bowel sounds, no guarding, no rebound, no masses. UPPER EXTREMITIES: 2+ pulses, warm, well-perfused. No peripheral edema. Strength 5/5, sensation 5/5, no tremors visible, no arm drift on 10 sec LOWER EXTREMITIES: 2+ pulses, warm, well-perfused. No calf tenderness. No peripheral edema. Sensation 5/5, strength 5/5, no drift on 10 sec, no tremors visible, dorsiflexion 5/5, plantar flexion 5/5. NEUROLOGICAL: Cranial Nerve palsy, Cranial nerve VII palsy on the left side. Dysarthria. Left sided partial hemianopia. NIH= 9 PSYCHIATRIC: Cooperative. Good eye contact. Appropriate mood and affect. SKIN: Warm, dry, normal turgor, no rashes or lesions noted, normal capillary refill. Laboratory Results - last 24 hr CBC,CMP WBC 12.5 K/mm3 (4.0-10.0) H 10/20/19 05:33 Corrected WBC (auto) Cancelled 10/19/19 14:20 RBC 4.73 M/mm3 (4.00-5.60) 10/20/19 05:33 Hgb 13.5 GM/dL (11.7-16.9) 10/20/19 05:33 Hct 39.6 % (35.4-49) 10/20/19 05:33 MCV 83.7 fl (80-96) 10/20/19 05:33 MCH 28.5 pg (25.7-33.7) 10/20/19 05:33 MCHC 34.1 g/dl (32.0-35.9) 10/20/19 05:33 RDW 14.1 % (11.9-15.9) 10/20/19 05:33 Plt Count 209 K/MM3 (134-434) 10/20/19 05:33 MPV 8.6 fl (7.5-11.1) 10/20/19 05:33 Absolute Neuts (auto) 7.6 K/mm3 (1.5-8.0) 10/20/19 05:33 Neutrophils % 61.0 % (42.8-82.8) D 10/20/19 05:33 Lymphocytes % 29.5 % (8-40) D 10/20/19 05:33 Monocytes % 7.7 % (3.8-10.2) 10/20/19 05:33 Eosinophils % 1.4 % (0-4.5) D 10/20/19 05:33 Basophils % 0.4 % (0-2.0) 10/20/19 05:33 Nucleated RBC % 0 % (0-0) 10/20/19 05:33 Platelet Estimate Cancelled 10/19/19 14:20 Platelet Comment Cancelled 10/19/19 14:20 ESR 12 mm/hr (0-20) 10/19/19 17:23 Sodium 142 mmol/L (136-145) 10/20/19 05:33 Potassium 3.1 mmol/L (3.5-5.1) L 10/20/19 05:33 Chloride 103 mmol/L (98-107) 10/20/19 05:33 Carbon Dioxide 31 mmol/L (21-32) 10/20/19 05:33 Anion Gap 7 MMOL/L (8-16) L 10/20/19 05:33 BUN 14.6 mg/dL (7-18) 10/20/19 05:33 Creatinine 0.9 mg/dL (0.55-1.3) 10/20/19 05:33 Est GFR (CKD-EPI)AfAm 104.24 10/20/19 05:33 Est GFR (CKD-EPI)NonAf 89.94 03/05/20 05:33 POC Glucometer 128 UNITS (80-120) 10/19/19 21:02 Random Glucose 101 mg/dL (74-106) 10/20/19 05:33 Hemoglobin A1c % 6.4 % (4.2-6.3) H 10/20/19 05:33 Calcium 8.5 mg/dL (8.5-10.1) 10/20/19 05:33 Phosphorus 3.1 mg/dL (2.5-4.9) 10/20/19 05:33 Magnesium 1.8 mg/dL (1.8-2.4) 10/19/19 14:20 Total Bilirubin 0.9 mg/dL (0.2-1) 10/20/19 05:33 AST 22 U/L (15-37) 10/20/19 05:33 ALT 23 U/L (13-61) 10/20/19 05:33 Alkaline Phosphatase 70 U/L (45-117) 10/20/19 05:33 Creatine Kinase 219 U/L (26-308) 10/19/19 14:20 Creatine Kinase Index 1.0 % (0.0-5.0) 10/19/19 14:20 CK-MB (CK-2) 2.2 ng/mL (0.5-3.6) 10/19/19 14:20 Troponin I < 0.02 ng/ml (0.00-0.05) 10/19/19 14:20 C-Reactive Protein 0.7 MG/DL (0.00-0.3) H 10/19/19 17:23 Total Protein 6.8 g/dl (6.4-8.2) 10/20/19 05:33 Albumin 3.3 g/dl (3.4-5.0) L 10/20/19 05:33 Triglycerides 75 mg/dL (0-150) 10/20/19 05:33 Cholesterol 193 mg/dL (50-200) 10/20/19 05:33 Total LDL Cholesterol 130 mg/dL (5-100) H 10/20/19 05:33 HDL Cholesterol 49 mg/dL (40-60) 10/20/19 05:33 TSH 2.40 uIU/ml (0.358-3.74) 10/19/19 14:20 Active Medications Generic Name Dose Route Start Last Admin Trade Name Freq PRN Reason Stop Dose Admin Aspirin 81 mg 10/20/19 10:00 10/20/19 10:12 Ecotrin - PO 81 mg DAILY JOHN PAUL Administration Atorvastatin Calcium 80 mg 10/19/19 22:00 10/19/19 22:12 Lipitor - PO 80 mg HS JOHN PAUL Administration Heparin Sodium (Porcine) 1,000 unit 10/19/19 18:19 Heparin - IVPUSH PRN PRN Heparin Heparin Sodium (Porcine) 5,000 unit 10/19/19 18:19 10/20/19 01:35 Heparin - IVPUSH 5,000 unit PRN PRN Administration Heparin Heparin Sodium/Dextrose 25,000 units in 500 mls @ 20 mls/hr 10/19/19 18:30 10/20/19 17:05 Heparin Infusion - IVPB 1,150 units/hr TITR JOHN PAUL 23 mls/hr Administration Protocol 1,000 UNITS/HR ASSESSMENT/PLAN: 64 M PMH HTN presented to the ED with facial droop and blurry vision is admitted for a CVA affecting CN and VII #CVA Head CT negative Brain MRI shows multiple acute infarctions, left cerebellar hemisphere, multiple infarcts right and left occipital lobes. 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 Home holter monitor on dc Homocysteine level pending Speech and Swallow evaluation- recom dysphagia minced diet Physical Therapy ordered Neurochecks Q4H Aspirin 81 given Atorvastatin 80 mg HS given Started on IV Heparin drip Neurology consulted- Dr. Pinto. Appreciate recs Discussed with Dr. Babcock, highly recom RHEA, will push for it RHEA needed- Dr. García consulted- will f/u #HTN Was on HCTZ- reports he hasn't taken it in 2 yrs Will monitor BP DVT ppx Heparin Drip Started FEN NS @ 75 ml/hr Monitor CMP Dysphagia minced Dispo: f/u RHEA, f/u tele monitoring, f/u cardiology, f/u neuro Visit type - Emergency Visit Emergency Visit: Yes ED Registration Date: 10/19/19 Care time: The patient presented to the Emergency Department on the above date and was hospitalized for further evaluation of their emergent condition. - New Patient This patient is new to me today: Yes Date on this admission: 10/21/19 - Critical Care Critical Care patient: No - Discharge Referral Referred to [facility] No ATTENDING PHYSICIAN STATEMENT I saw and evaluated the patient. I reviewed the resident's note and discussed the case with the resident. I agree with the resident's findings and plan as documented. SUBJECTIVE: OBJECTIVE: ASSESSMENT AND PLAN:
[2019-10-20] MEDS: ATORVASTATIN CA 80 MG TABLET (FP) PO SCH (21:42)
--- NOTE | 2019-10-20 21:59 | CON.CARD ---
Consult Consult Specialty:: Cardiology Referred by:: Dr. Powell Reason for Consultation:: Embolic CVA -RHEA - History of Present Illness Chief Complaint: Weakness and left sided facial droop History of Present Illness: 64 year-old man with a PMHx of HTN admitted 10/19/19 with CVA. The patient developed dizziness, veritgo and vomiting on 10/18/19. He became weak and unable to walk and left sided facial droop on the day of presentation. He also notes having blurry vision. He reports no chest pain, shortness of breath or palpitation. CT head 10/20/19 showed no acute pathology noted. Brain MRI 10/19/19- multiple acute infarctions: left cerebellar hemisphere, multiple infarcts right and left occipatal lobes. Brain MRA 10/19/19 was unremarkable MR angiogram of the head/[place] of [place]. ECG 10/19/19: Sinus rhythm. Normal ECG. Echo 10/20/19: Normal LV size, wall motion and systolic function. LVEF = 60-65%. Normal RV size and function. Normal LA and RA in size. No significant valvular abnormality. Telemetry record reviewed. It shows sinus rhythm without arrhythmia. 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 - Alcohol/Substance Use Hx Alcohol Use: No - Smoking History Smoking history: Never smoked Have you smoked in the past 12 months: No Home Medications - Allergies Allergies/Adverse Reactions: Allergies Allergy/AdvReac Type Severity Reaction Status Date / Time No Known Allergies Allergy Verified 10/19/19 14:12 - Home Medications Home Medications: Ambulatory Orders Hydrochlorothiazide [Hctz -] 25 mg PO DAILY 10/19/19 Vital Signs: Vital Signs Temperature 98.1 F 10/20/19 18:00 Pulse Rate 70 10/20/19 18:00 Respiratory Rate 18 10/20/19 18:00 Blood Pressure 140/92 10/20/19 18:00 O2 Sat by Pulse Oximetry (%) 98 10/20/19 09:00 General: Well developed. Well nourished. No acute distress. Head: Left facial droop, Neck: Supple. No JVD. No bruits. Heart: Normal S1, S2: Regular rhythm and rate. No murmur. No gallop or rub. Lungs: Symmetrical air entry. Clear to auscultation. No crackle. No wheezing or rhonchi. Abdomen: Soft. Bowel sound positive. Non tender. No masses. Extremities: No edema. No clubbing or cyanosis. PD 2+, equal bilaterally. Neuro: Intact, no focal findings. AAO X3 - Other Data Labs, Other Data: CBC, BMP 10/20/19 05:33 10/20/19 05:33 INR, PTT INR 1.07 (0.83-1.09) 10/19/19 14:20 Imaging - Results EKG: Image Reviewed (ECG 10/19/19: Sinus rhythm. Normal ECG.) Other: Image Reviewed (Echo 10/20/19: Normal LV size, wall motion and systolic function. LVEF = 60-65%. Normal RV size and function. Normal LA and RA in size. No significant valvular abnormality.) Assessment/Plan 64 year-old man with a PMHx of HTN admitted 10/19/19 with CVA. The patient developed dizziness, veritgo and vomiting on 10/18/19. He became weak and unable to walk and left sided facial droop on the day of presentation. He also notes having blurry vision. He reports no chest pain, shortness of breath or palpitation. CT head 10/20/19 showed no acute pathology noted. Brain MRI 10/19/19- multiple acute infarctions: left cerebellar hemisphere, multiple infarcts right and left occipatal lobes. Brain MRA 10/19/19 was unremarkable MR angiogram of the head[place]. ECG 10/19/19: Sinus rhythm. Normal ECG. Echo 10/20/19: Normal LV size, wall motion and systolic function. LVEF = 60-65%. Normal RV size and function. Normal LA and RA in size. No significant valvular abnormality. Telemetry record reviewed. It shows sinus rhythm without arrhythmia. CVA, likely embolic: RHEA is indicated. However, I had a lengthy discussion with the patient and his two daughter and explained the benefits and risks of RHEA. The patient declined the recommended RHEA. 1) Out patient cardiac follow up with Dr. García to rediscuss RHEA. 2) Event monitor for 4 weeks to rule out silent atrial fibrillation. 3) BP control. Please do not hesitate to call us for re-consult at any time if any further questions or additional issue arises regarding this patient.
[2019-10-21 07:41] LABS: HEMATOCRIT 41.8 % (35.4-49); HEMOGLOBIN 14.1 GM/dL (11.7-16.9); MCH 28.5 pg (25.7-33.7); MCHC 33.7 g/dl (32.0-35.9); MEAN CELL VOLUME 84.5 fl (80-96); MEAN PLT VOLUME 8.4 fl (7.5-11.1); PLATELET COUNT 219 K/MM3 (134-434); RBC 4.95 M/mm3 (4.00-5.60); RDW 14.2 % (11.9-15.9); WHITE BLOOD COUNT 9.9 K/mm3 (4.0-10.0)
[2019-10-21 08:28] LABS: ALBUMIN 3.3 g/dl (3.4-5.0); BILIRUBIN,TOTAL 0.6 mg/dL (0.2-1); BLOOD UREA NITROGEN 15.3 mg/dL (7-18); CALCIUM 8.4 mg/dL (8.5-10.1); CREATININE 0.9 mg/dL (0.55-1.3); MAGNESIUM 2.2 mg/dL (1.8-2.4); PHOSPHOROUS 2.4 mg/dL (2.5-4.9); POTASSIUM 3.2 mmol/L (3.5-5.1); TOT PROT 6.8 g/dl (6.4-8.2)
[2019-10-21] MEDS: ASPIRIN COATED 81 MG TABLET.EC PO SCH (09:26)
[2019-10-21] MEDS ORDERED: ARTIFICIAL TEARS (POLYVINYL ALCOHOL) OPTH DROPS OU ONE (10:15)
[2019-10-21] MEDS ORDERED: POTASSIUM CHLORIDE TABS 20 MEQ TABLET.ER (FP) PO ONE (11:31)
--- NOTE | 2019-10-21 11:32 | PN ---
Progress Note, Physician History of Present Illness: 64-year-old male with PMHx of HTN complained of vertigo which started on 3/ ar ound noon, associated with ataxia and later developed left facial droopiness and some blurry vision. Patient continued to go back with his daily activities including going to work. The next day developed N/V and then sought medical attention. Patient admitted with CVA. Today: Patient seen and examined at bedside in [facility] Had no active c/o was alert and conversing. Is considering whether or not to have RHEA Denies any new focal deficits, and has improvement on speech. - Current Medication List Current Medications: Active Medications Aspirin (Ecotrin -) 81 mg PO DAILY [facility] Last Admin: 10/21/19 09:26 Dose: 81 mg Documented by: Atorvastatin Calcium (Lipitor -) 80 mg PO HS [facility] Last Admin: 10/20/19 21:42 Dose: 80 mg Documented by: Heparin Sodium (Porcine) (Heparin -) 1,000 unit IVPUSH PRN PRN PRN Reason: Heparin Heparin Sodium (Porcine) (Heparin -) 5,000 unit IVPUSH PRN PRN PRN Reason: Heparin Last Admin: 10/20/19 01:35 Dose: 5,000 unit Documented by: Hydrochlorothiazide (Hctz -) 25 mg PO DAILY [facility] Heparin Sodium/Dextrose (Heparin Infusion -) 25,000 units in 500 mls @ 20 mls/hr IVPB TITR [facility]; Protocol Last Titration: 10/21/19 08:28 Dose: 1,150 units/hr, 23 mls/hr Documented by: - Objective Vital Signs: Vital Signs Temperature 97.9 F 10/21/19 09:24 Pulse Rate 66 10/21/19 09:24 Respiratory Rate 18 10/21/19 09:24 Blood Pressure 146/82 10/21/19 09:24 O2 Sat by Pulse Oximetry (%) 97 10/21/19 09:00 Constitutional: Yes: Well Nourished Cardiovascular: Yes: WNL Respiratory: Yes: WNL Labs: CBC, BMP 10/21/19 05:50 10/21/19 05:50 INR, PTT INR 1.07 (0.83-1.09) 10/19/19 14:20 Impression/Plan Impression/Plan: 1- CVA - Embolic stroke Afib episodes on Tele MRI - Multiple acute infactions : left cerebellar hemisphere multiple infarctions in the right and left occipital lobes R>L. Neuro on board PT /OT Speech and swallow Holter monitor and Tele monitor TTE unremarkable; does not want RHEA at this time ASA 81 mg qd High intensity Statin Heparin drip per neuro recs Can d/c fluids when cleared for diet 2- HTN Monitor BP Hydrochlorothiazide 3- Supportive care DVT Px- heparin drip as above Visit type - Emergency Visit Emergency Visit: Yes ED Registration Date: 10/19/19 Care time: The patient presented to the Emergency Department on the above date and was hospitalized for further evaluation of their emergent condition. - New Patient This patient is new to me today: No - Critical Care Critical Care patient: No - Discharge Referral Referred to [facility] No
--- NOTE | 2019-10-21 11:37 | PN ---
Physical Exam: SUBJECTIVE: Patient seen and examined. Asymptomatic currently, afebrile. no acute changes. Denies f/c/n/v/d/sob OBJECTIVE: Vital Signs Period Temp Pulse Resp BP Sys/Segura Pulse Ox Last 24 Hr 97.5 F-98.2 F 62-77 18-18 138-150/71-92 97-97 GENERAL: AOx3, NAD HEAD: Normal with no signs of trauma. EYES: PERRLA, lateral gaze palsy present on the left eye. EARS, NOSE, THROAT: Ears normal, nares patent, oropharynx clear without exudates. Moist mucous membranes. NECK: Normal range of motion, supple without lymphadenopathy, JVD, or masses. LUNGS: CTAB, no wheezes, rubs, crackles HEART: Regular rate and rhythm, normal S1 and S2 without murmur, rub or gallop. ABDOMEN: Soft, nontender, not distended, normoactive bowel sounds, no guarding, no rebound, no masses. UPPER EXTREMITIES: 2+ pulses, warm, well-perfused. No peripheral edema. Strength 5/5, sensation 5/5, no tremors visible, no arm drift on 10sec LOWER EXTREMITIES: 2+ pulses, warm, well-perfused. No calf tenderness. No peripheral edema. Sensation 5/5, strength 5/5, no drift on 10 sec, no tremors visible, dorsiflexion 5/5, plantar flexion 5/5. NEUROLOGICAL: Cranial Nerve palsy, Cranial nerve VII palsy on the left side. Dysarthria. Left sided partial hemianopia. NIH= 9 PSYCHIATRIC: Cooperative. Good eye contact. Appropriate mood and affect. SKIN: Warm, dry, normal turgor, no rashes or lesions noted, normal capillary refill. Laboratory Results - last 24 hr 10/21/19 10/21/19 10/21/19 05:50 05:50 05:50 WBC 9.9 RBC 4.95 Hgb 14.1 Hct 41.8 MCV 84.5 MCH 28.5 MCHC 33.7 RDW 14.2 Plt Count 219 MPV 8.4 PTT (Actin FS) 51.8 H Sodium 142 Potassium 3.2 L Chloride 105 Carbon Dioxide 31 Anion Gap 7 L BUN 15.3 Creatinine 0.9 Est GFR (CKD-EPI)AfAm 104.24 Est GFR (CKD-EPI)NonAf 89.94 Random Glucose 88 Calcium 8.4 L Phosphorus 2.4 L Magnesium 2.2 Total Bilirubin 0.6 AST 27 ALT 27 Alkaline Phosphatase 67 Total Protein 6.8 Albumin 3.3 L Active Medications Generic Name Dose Route Start Last Admin Trade Name Freq PRN Reason Stop Dose Admin Aspirin 81 mg 10/20/19 10:00 10/21/19 09:26 Ecotrin - PO 81 mg DAILY JOHN PAUL Administration Atorvastatin Calcium 80 mg 10/19/19 22:00 10/20/19 21:42 Lipitor - PO 80 mg HS JOHN PAUL Administration Heparin Sodium (Porcine) 1,000 unit 10/19/19 18:19 Heparin - IVPUSH PRN PRN Heparin Heparin Sodium (Porcine) 5,000 unit 10/19/19 18:19 10/20/19 01:35 Heparin - IVPUSH 5,000 unit PRN PRN Administration Heparin Hydrochlorothiazide 25 mg 10/21/19 11:30 Hctz - PO DAILY JOHN PAUL Heparin Sodium/Dextrose 25,000 units in 500 mls @ 20 mls/hr 10/19/19 18:30 10/21/19 08:28 Heparin Infusion - IVPB 1,150 units/hr TITR JOHN PAUL 23 mls/hr Titration Protocol 1,000 UNITS/HR ASSESSMENT/PLAN: 64 M PMH HTN presented to the ED with facial droop and blurry vision is admitted for a CVA affecting CN and VII #CVA Head CT negative Brain MRI shows multiple acute infarctions, left cerebellar hemisphere, multiple infarcts right and left occipital lobes. 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 Home event monitor on dc- Will need to verify with cardio if it should be placed inpatient or outpt Homocysteine level pending Physical Therapy walked 65 ft Neurochecks Q4H Aspirin 81 given Atorvastatin 80 mg HS given IV Heparin drip d/corazon- Will f/u with Dr. Pinto Currently, pt refusing RHEA- will have cardio speak to pt and family Tele monitor showed episodes of paroxysmal A-fib- in and out of sinus rhythm Discussed with Dr. Houston, overnight A-fib on tele confirmed, likely source of emboli Discussed with Dr. Babcock- Started pt on Eliquis 5 BID Cardio to start Amiodarone 400mg loading for 2 weeks, then 200mg maintenance F/u with TFT, LFT #Hypokalemia potassium repleted #HTN will cont HCTZ Will monitor BP DVT ppx Heparin Drip FEN Monitor CMP Dysphagia minced Dispo: f/u RHEA, f/u tele monitoring, f/u cardiology, f/u neuro- recom speaking to pt, outpt event monitoring Visit type - Emergency Visit Emergency Visit: Yes ED Registration Date: 10/19/19 Care time: The patient presented to the Emergency Department on the above date and was hospitalized for further evaluation of their emergent condition. - New Patient This patient is new to me today: Yes Date on this admission: 10/23/19 - Critical Care Critical Care patient: No - Discharge Referral Referred to [facility] No ATTENDING PHYSICIAN STATEMENT I saw and evaluated the patient. I reviewed the resident's note and discussed the case with the resident. I agree with the resident's findings and plan as documented. SUBJECTIVE: OBJECTIVE: ASSESSMENT AND PLAN:
[2019-10-21] MEDS: HYDROCHLOROTHIAZIDE 25 MG TABLET (FP) PO SCH (11:47)
[2019-10-21] MEDS ORDERED: PT OWN MED DRAWER 7, Y5N ONE ×2 (11:49→21:28)
[2019-10-21] MEDS: APIXABAN 5 MG TABLET PO SCH ×2 (12:59→21:55)
--- NOTE | 2019-10-21 14:40 | PN ---
Progress Note, PRODUCTION WELDING SUPERVISOR - Note Progress Note: Selected Entries 10/20/19 10/20/19 10/20/19 00:57 01:30 10:00 Supper Temperature 98 F 98 F 98.2 F 10/20/19 10/20/19 10/20/19 14:00 18:00 21:40 Supper 50% Temperature 98.1 F 98.1 F 97.5 F L 10/21/19 10/21/19 10/21/19 01:41 05:33 09:24 Supper Temperature 98.2 F 98 F 97.9 F Laboratory Tests 10/19/19 10/20/19 10/21/19 14:20 05:33 05:50 WBC Cancelled 12.5 H 9.9 On dys ground/thin liquids/straw
[2019-10-21] MEDS ORDERED: ARTIFICIAL TEARS (POLYVINYL ALCOHOL) OPTH DROPS OU PRN (15:46)
--- NOTE | 2019-10-21 16:11 | PN ---
Progress Note, Physician Chief Complaint: The patient appears comfortable at the time of exam. he reports no chest pain, shortness of breath, palpitation or dizziness. Telemetry reviewed, it showed paroxysmal atrial fibrillation with rapid VR and post afib sinus bradycardia, VPCs and 3 beat NSVT. History of Present Illness: 64 year-old man with a PMHx of HTN admitted 10/19/19 with CVA. The patient developed dizziness, veritgo and vomiting on 10/18/19. He became weak and unable to walk and left sided facial droop on the day of presentation. He also notes having blurry vision. He reports no chest pain, shortness of breath or palpitation. CT head 10/20/19 showed no acute pathology noted. Brain MRI 10/19/19- multiple acute infarctions: left cerebellar hemisphere, multiple infarcts right and left occipatal lobes. Brain MRA 10/19/19 was unremarkable MR angiogram of the head[place] of [place]. ECG 10/19/19: Sinus rhythm. Normal ECG. Echo 10/20/19: Normal LV size, wall motion and systolic function. LVEF = 60-65%. Normal RV size and function. Normal LA and RA in size. No significant valvular abnormality. Telemetry 10/21/2019 showed paroxysmal atrial fibrillation with rapid VR and post afib sinus bradycardia, VPCs and 3 beat NSVT. - Current Medication List Current Medications: Active Medications Amiodarone HCl (Cordarone -) 400 mg PO DAILY [facility] Apixaban (Eliquis -) 5 mg PO BID [facility] Last Admin: 10/21/19 12:59 Dose: 5 mg Documented by: Artificial Tears (Artificial Tears) 1 drop OU BID PRN PRN Reason: DRY EYES Aspirin (Ecotrin -) 81 mg PO DAILY [facility] Last Admin: 10/21/19 09:26 Dose: 81 mg Documented by: Atorvastatin Calcium (Lipitor -) 80 mg PO HS [facility] Last Admin: 10/20/19 21:42 Dose: 80 mg Documented by: Hydrochlorothiazide (Hctz -) 25 mg PO DAILY [facility] Last Admin: 10/21/19 11:47 Dose: 25 mg Documented by: - Objective Vital Signs: Vital Signs Temperature 98 F 10/21/19 13:00 Pulse Rate 74 10/21/19 13:00 Respiratory Rate 20 10/21/19 13:00 Blood Pressure 144/79 10/21/19 13:00 O2 Sat by Pulse Oximetry (%) 97 10/21/19 09:00 General: Well developed. Well nourished. No acute distress. Head: Left facial droop. Neck: Supple. No JVD. No bruits. Heart: Normal S1, S2: Regular rhythm and rate. No murmur. No gallop or rub. Lungs: Symmetrical air entry. Clear to auscultation. No crackles. No wheezing or rhonchi. Abdomen: Soft. Bowel sound positive. Non tender. No masses. Extremities: No edema. No clubbing or cyanosis. Labs: CBC, BMP 10/21/19 05:50 10/21/19 05:50 INR, PTT INR 1.07 (0.83-1.09) 10/19/19 14:20 Assessment/Plan 64 year-old man with a PMHx of HTN admitted 10/19/19 with CVA. The patient developed dizziness, veritgo and vomiting on 10/18/19. He became weak and unable to walk and left sided facial droop on the day of presentation. He also notes having blurry vision. He reports no chest pain, shortness of breath or palpitation. CT head 10/20/19 showed no acute pathology noted. Brain MRI 10/19/19- multiple acute infarctions: left cerebellar hemisphere, multiple infarcts right and left occipatal lobes. Brain MRA 10/19/19 was unremarkable MR angiogram of the head[place]. ECG 10/19/19: Sinus rhythm. Normal ECG. Echo 10/20/19: Normal LV size, wall motion and systolic function. LVEF = 60-65%. Normal RV size and function. Normal LA and RA in size. No significant valvular abnormality. Telemetry 10/21/2019 showed paroxysmal atrial fibrillation with rapid VR and post afib sinus bradycardia, VPCs and 3 beat NSVT. CVA, likely embolic secondary to paroxysmal atrial fibrillation with rapid VR and post afib sinus bradycardia: Eliquis started. Start amiodarone 400 mg daily to reduce atrial fibrillation burden. Amdiodarone can be decreased to 200 mg daily after one week. May stop aspirin. Out patient cardiac follow up with Dr. García. Please do not hesitate to call us for re-consult at any time if any further questions or additional issue arises regarding this patient.
[2019-10-21] MEDS: AMIODARONE HCL 200 MG TABLET PO SCH (16:39)
--- NOTE | 2019-10-21 18:08 | PN ---
Progress Note, Physician History of Present Illness: vents noted Chart review Seen on telemetry Alert awake oriented still with the double vision Mild lightheadedness - Current Medication List Current Medications: Active Medications Amiodarone HCl (Cordarone -) 400 mg PO DAILY [facility] Last Admin: 10/21/19 16:39 Dose: 400 mg Documented by: Apixaban (Eliquis -) 5 mg PO BID [facility] Last Admin: 10/21/19 12:59 Dose: 5 mg Documented by: Artificial Tears (Artificial Tears) 1 drop OU BID PRN PRN Reason: DRY EYES Aspirin (Ecotrin -) 81 mg PO DAILY [facility] Last Admin: 10/21/19 09:26 Dose: 81 mg Documented by: Atorvastatin Calcium (Lipitor -) 80 mg PO HS [facility] Last Admin: 10/20/19 21:42 Dose: 80 mg Documented by: Hydrochlorothiazide (Hctz -) 25 mg PO DAILY [facility] Last Admin: 10/21/19 11:47 Dose: 25 mg Documented by: - Objective Vital Signs: Vital Signs Temperature 98 F 10/21/19 13:00 Pulse Rate 74 10/21/19 13:00 Respiratory Rate 20 10/21/19 13:00 Blood Pressure 144/79 10/21/19 13:00 O2 Sat by Pulse Oximetry (%) 97 10/21/19 09:00 Constitutional: Yes: Well Nourished Eyes: Yes: WNL HENT: Yes: WNL Neurological: Yes: Alert, Oriented, Babinski positive, Unsteady Gait Labs: CBC, BMP 10/21/19 05:50 10/21/19 05:50 INR, PTT INR 1.07 (0.83-1.09) 10/19/19 14:20 Problem List - Problems (1) New cerebellar infarct Code(s): I63.9 - CEREBRAL INFARCTION, UNSPECIFIED Assessment/Plan 1. RHEA could be done as an outpatient. 22. Elliqus. 3. Fall precautions. 4. Eye patch
[2019-10-21] MEDS: ATORVASTATIN CA 80 MG TABLET (FP) PO SCH (21:55)
[2019-10-22 07:48] LABS: HEMATOCRIT 44.9 % (35.4-49); HEMOGLOBIN 15.3 GM/dL (11.7-16.9); MCH 28.7 pg (25.7-33.7); MEAN CELL VOLUME 84.4 fl (80-96); MEAN PLT VOLUME 8.3 fl (7.5-11.1); PLATELET COUNT 229 K/MM3 (134-434); RBC 5.32 M/mm3 (4.00-5.60); RDW 13.7 % (11.9-15.9); WHITE BLOOD COUNT 12.8 K/mm3 (4.0-10.0)
[2019-10-22 08:17] LABS: ALBUMIN 3.5 g/dl (3.4-5.0); BILIRUBIN,TOTAL 0.9 mg/dL (0.2-1); BLOOD UREA NITROGEN 17.1 mg/dL (7-18); CALCIUM 8.5 mg/dL (8.5-10.1); CREATININE 1.1 mg/dL (0.55-1.3); MAGNESIUM 2.1 mg/dL (1.8-2.4); TOT PROT 7.5 g/dl (6.4-8.2)
[2019-10-22] MEDS: HYDROCHLOROTHIAZIDE 25 MG TABLET (FP) PO SCH (09:43)
[2019-10-22] MEDS: AMIODARONE HCL 200 MG TABLET PO SCH (09:43)
[2019-10-22] MEDS: APIXABAN 5 MG TABLET PO SCH ×2 (09:44→21:55)
[2019-10-22] MEDS: ASPIRIN COATED 81 MG TABLET.EC PO SCH (09:44)
--- NOTE | 2019-10-22 15:40 | PN ---
Progress Note, Physician History of Present Illness: 64-year-old male with PMHx of HTN admitted with CVA in the setting of new onset AFib- now on eliquis. Pending dispo to facility. Today: Patient seen and examined at bedside in [facility] Had no active c/o was alert and conversing. Facial droop seems improved. Denies any new focal deficits, and has improvement on speech. - Current Medication List Current Medications: Active Medications Amiodarone HCl (Cordarone -) 400 mg PO DAILY [facility] Last Admin: 10/22/19 09:43 Dose: 400 mg Documented by: Apixaban (Eliquis -) 5 mg PO BID [facility] Last Admin: 10/22/19 09:44 Dose: 5 mg Documented by: Artificial Tears (Artificial Tears) 1 drop OU BID PRN PRN Reason: DRY EYES Aspirin (Ecotrin -) 81 mg PO DAILY [facility] Last Admin: 10/22/19 09:44 Dose: 81 mg Documented by: Atorvastatin Calcium (Lipitor -) 80 mg PO HS [facility] Last Admin: 10/21/19 21:55 Dose: 80 mg Documented by: Hydrochlorothiazide (Hctz -) 25 mg PO DAILY [facility] Last Admin: 10/22/19 09:43 Dose: 25 mg Documented by: - Objective Vital Signs: Vital Signs Temperature 98 F 10/22/19 10:00 Pulse Rate 114 H 10/22/19 14:00 Respiratory Rate 20 10/22/19 14:00 Blood Pressure 157/85 10/22/19 14:00 O2 Sat by Pulse Oximetry (%) 97 10/22/19 09:00 Labs: CBC, BMP 10/22/19 06:40 10/22/19 06:40 INR, PTT INR 1.07 (0.83-1.09) 10/19/19 14:20 Impression/Plan Impression/Plan: 1- CVA - Embolic stroke Afib episodes on Tele MRI - Multiple acute infactions : left cerebellar hemisphere multiple infarctions in the right and left occipital lobes R>L. Neuro on board Dispo planning Tele TTE unremarkable; does not want RHEA at this time ASA 81 mg qd High intensity Statin Eliquis BID initiated F/U Cardio and neuro as o/p Afib On eliquis 5 mg BID On amiodorone Cardio on board 2- HTN Monitor BP Hydrochlorothiazide 3- Supportive care DVT Px- eliquis Visit type - Emergency Visit Emergency Visit: Yes ED Registration Date: 10/19/19 Care time: The patient presented to the Emergency Department on the above date and was hospitalized for further evaluation of their emergent condition. - New Patient This patient is new to me today: No - Critical Care Critical Care patient: No - Discharge Referral Referred to [facility] No
[2019-10-22] MEDS: ATORVASTATIN CA 80 MG TABLET (FP) PO SCH (21:55)
[2019-10-23 08:01] LABS: HEMATOCRIT 43.6 % (35.4-49); HEMOGLOBIN 15.2 GM/dL (11.7-16.9); MCH 28.8 pg (25.7-33.7); MCHC 34.7 g/dl (32.0-35.9); MEAN PLT VOLUME 8.3 fl (7.5-11.1); PLATELET COUNT 232 K/MM3 (134-434); RBC 5.26 M/mm3 (4.00-5.60); RDW 13.9 % (11.9-15.9); WHITE BLOOD COUNT 12.2 K/mm3 (4.0-10.0)
[2019-10-23] MEDS: HYDROCHLOROTHIAZIDE 25 MG TABLET (FP) PO SCH (10:13)
[2019-10-23] MEDS: AMIODARONE HCL 200 MG TABLET PO SCH (10:13)
[2019-10-23] MEDS: APIXABAN 5 MG TABLET PO SCH ×2 (10:13→21:51)
[2019-10-23] MEDS: ASPIRIN COATED 81 MG TABLET.EC PO SCH (10:13)
--- NOTE | 2019-10-23 12:06 | PN ---
Progress Note, Physician History of Present Illness: 64-year-old male with PMHx of HTN admitted with CVA in the setting of new onset AFib- now on eliquis. Pending dispo to facility. Today: Patient seen and examined at bedside in [facility] Had no active c/o was alert and conversing. Facial droop seems improved and ambulating with walker. Denies any new focal deficits, and has improvement on speech. - Current Medication List Current Medications: Active Medications Amiodarone HCl (Cordarone -) 400 mg PO DAILY [facility] Last Admin: 10/23/19 10:13 Dose: 400 mg Documented by: Apixaban (Eliquis -) 5 mg PO BID [facility] Last Admin: 10/23/19 10:13 Dose: 5 mg Documented by: Artificial Tears (Artificial Tears) 1 drop OU BID PRN PRN Reason: DRY EYES Aspirin (Ecotrin -) 81 mg PO DAILY [facility] Last Admin: 10/23/19 10:13 Dose: 81 mg Documented by: Atorvastatin Calcium (Lipitor -) 80 mg PO HS [facility] Last Admin: 10/22/19 21:55 Dose: 80 mg Documented by: Hydrochlorothiazide (Hctz -) 25 mg PO DAILY [facility] Last Admin: 10/23/19 10:13 Dose: 25 mg Documented by: - Objective Vital Signs: Vital Signs Temperature 97.8 F 10/23/19 08:17 Pulse Rate 68 10/23/19 08:17 Respiratory Rate 20 10/23/19 09:00 Blood Pressure 121/75 10/23/19 08:17 O2 Sat by Pulse Oximetry (%) 98 10/23/19 09:00 Labs: CBC, BMP 10/23/19 06:00 10/22/19 06:40 INR, PTT INR 1.07 (0.83-1.09) 10/19/19 14:20 Impression/Plan Impression/Plan: 1- CVA - Embolic stroke Afib episodes on Tele with post sinus bryan MRI - Multiple acute infactions : left cerebellar hemisphere multiple infarctions in the right and left occipital lobes R>L. Neuro on board Dispo planning Tele TTE unremarkable; does not want RHEA at this time ASA 81 mg qd High intensity Statin Eliquis BID F/U Cardio and neuro as o/p Afib On eliquis 5 mg BID On amiodorone Cardio on board-Recs appreciated 2- HTN Monitor BP Hydrochlorothiazide 3- Supportive care DVT Px- eliquis DISPO PENDING PLACEMENT AND INSURANCE AUTH Visit type - Emergency Visit Emergency Visit: Yes ED Registration Date: 10/19/19 Care time: The patient presented to the Emergency Department on the above date and was hospitalized for further evaluation of their emergent condition. - New Patient This patient is new to me today: No - Critical Care Critical Care patient: No - Discharge Referral Referred to [facility] No
--- NOTE | 2019-10-23 13:29 | PN ---
Physical Exam: SUBJECTIVE: Patient seen and examined. Asymptomatic currently, afebrile. no acute changes. 2-3 episodes of A-fib w/ rvr on tele monitoring. Denies f/c/n/v/d/sob OBJECTIVE: Vital Signs Period Temp Pulse Resp BP Sys/Segura Pulse Ox Last 24 Hr 97.1 F-98.6 F 43-114 18-20 121-157/75-94 98-98 GENERAL: AOx3, NAD HEAD: Normal with no signs of trauma. EYES: PERRLA, lateral gaze palsy present on the left eye. EARS, NOSE, THROAT: Ears normal, nares patent, oropharynx clear without exudates. Moist mucous membranes. NECK: Normal range of motion, supple without lymphadenopathy, JVD, or masses. LUNGS: CTAB, no wheezes, rubs, crackles HEART: Regular rate and rhythm, normal S1 and S2 without murmur, rub or gallop. ABDOMEN: Soft, nontender, not distended, normoactive bowel sounds, no guarding, no rebound, no masses. UPPER EXTREMITIES: 2+ pulses, warm, well-perfused. No peripheral edema. Strength 5/5, sensation 5/5, no tremors visible, no arm drift on 10sec LOWER EXTREMITIES: 2+ pulses, warm, well-perfused. No calf tenderness. No peripheral edema. Sensation 5/5, strength 5/5, no drift on 10 sec, no tremors visible, dorsiflexion 5/5, plantar flexion 5/5. NEUROLOGICAL: Cranial Nerve palsy, Cranial nerve VII palsy on the left side. Dysarthria. Left sided partial hemianopia. NIH= 9 PSYCHIATRIC: Cooperative. Good eye contact. Appropriate mood and affect. SKIN: Warm, dry, normal turgor, no rashes or lesions noted, normal capillary refill. Laboratory Results - last 24 hr 10/19/19 10/23/19 10/23/19 17:23 06:00 06:00 WBC 12.2 H RBC 5.26 Hgb 15.2 Hct 43.6 MCV 83.0 MCH 28.8 MCHC 34.7 RDW 13.9 Plt Count 232 MPV 8.3 PTT (Actin FS) 36.6 H Lyme IgM 23 kDa Band No Result Required. Lyme IgM 39 kDa Band No Result Required. Lyme IgM 41 kDa Band No Result Required. Active Medications Generic Name Dose Route Start Last Admin Trade Name Freq PRN Reason Stop Dose Admin Amiodarone HCl 400 mg 10/21/19 15:45 10/23/19 10:13 Cordarone - PO 400 mg DAILY JOHN PAUL Administration Apixaban 5 mg 10/21/19 13:00 10/23/19 10:13 Eliquis - PO 5 mg BID JOHN PAUL Administration Artificial Tears 1 drop 10/21/19 15:46 Artificial Tears OU BID PRN DRY EYES Aspirin 81 mg 10/20/19 10:00 10/23/19 10:13 Ecotrin - PO 81 mg DAILY JOHN PAUL Administration Atorvastatin Calcium 80 mg 10/19/19 22:00 10/22/19 21:55 Lipitor - PO 80 mg HS JOHN PAUL Administration Hydrochlorothiazide 25 mg 10/21/19 11:30 10/23/19 10:13 Hctz - PO 25 mg DAILY JOHN PAUL Administration ASSESSMENT/PLAN: 64 M PMH HTN presented to the ED with facial droop and blurry vision is admitted for a CVA affecting CN and VII #CVA Head CT negative Brain MRI shows multiple acute infarctions, left cerebellar hemisphere, multiple infarcts right and left occipital lobes. 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 Home event monitor on dc outpt Homocysteine level pending Physical Therapy walked 65 ft Aspirin 81 given Atorvastatin 80 mg HS given f/u with Dr. Pinto Tele monitor showed episodes of paroxysmal A-fib- in and out of sinus rhythm Discussed with Dr. Houston, overnight A-fib on tele confirmed, likely source of emboli Discussed with Dr. Babcock- Started pt on Eliquis 5 BID Cardio to start Amiodarone 400mg loading for 2 weeks, then 200mg maintenance F/u with TFT, LFT Discussed with ROHITH, pt to be sent to [facility] on dc for short term rehab, pending auth #Hypokalemia potassium repleted #HTN will cont HCTZ Will monitor BP DVT ppx Heparin Drip FEN Monitor CMP Dysphagia minced Dispo: f/u tele monitoring, f/u cardiology on d/c meds, f/u neuro recom for meds, outpt event monitoring, f/u [facility] placement ATTENDING PHYSICIAN STATEMENT I saw and evaluated the patient. I reviewed the resident's note and discussed the case with the resident. I agree with the resident's findings and plan as documented. SUBJECTIVE: OBJECTIVE: ASSESSMENT AND PLAN:
--- NOTE | 2019-10-23 15:01 | PN ---
Progress Note, Physician History of Present Illness: eevents noted Chart review Slightly dizzy No difficulty swallowing On puree Diet Out of bed to chair - Current Medication List Current Medications: Active Medications Amiodarone HCl (Cordarone -) 400 mg PO DAILY [facility] Last Admin: 10/23/19 10:13 Dose: 400 mg Documented by: Apixaban (Eliquis -) 5 mg PO BID [facility] Last Admin: 10/23/19 10:13 Dose: 5 mg Documented by: Artificial Tears (Artificial Tears) 1 drop OU BID PRN PRN Reason: DRY EYES Aspirin (Ecotrin -) 81 mg PO DAILY [facility] Last Admin: 10/23/19 10:13 Dose: 81 mg Documented by: Atorvastatin Calcium (Lipitor -) 80 mg PO HS [facility] Last Admin: 10/22/19 21:55 Dose: 80 mg Documented by: Hydrochlorothiazide (Hctz -) 25 mg PO DAILY [facility] Last Admin: 10/23/19 10:13 Dose: 25 mg Documented by: - Objective Vital Signs: Vital Signs Temperature 98 F 10/23/19 14:00 Pulse Rate 66 10/23/19 14:00 Respiratory Rate 20 10/23/19 14:00 Blood Pressure 113/62 10/23/19 14:00 O2 Sat by Pulse Oximetry (%) 98 10/23/19 09:00 Constitutional: Yes: Well Nourished Eyes: Yes: WNL HENT: Yes: WNL Neurological: Yes: Alert, Oriented, Babinski negative ...Motor Strength: WNL (the left 7 palsy s better still with difficulty left eye abduction) Labs: CBC, BMP 10/23/19 06:00 10/22/19 06:40 INR, PTT INR 1.07 (0.83-1.09) 10/19/19 14:20 Problem List - Problems (1) New cerebellar infarct Code(s): I63.9 - CEREBRAL INFARCTION, UNSPECIFIED Assessment/Plan aacute rehabilitation. 2. Continue the anticoagulant. 3. Fall precautions
[2019-10-23] MEDS: ATORVASTATIN CA 80 MG TABLET (FP) PO SCH (21:51)
[2019-10-24 07:02] LABS: HEMATOCRIT 44.7 % (35.4-49); HEMOGLOBIN 15.3 GM/dL (11.7-16.9); MCH 28.6 pg (25.7-33.7); MCHC 34.2 g/dl (32.0-35.9); MEAN CELL VOLUME 83.5 fl (80-96); MEAN PLT VOLUME 8.1 fl (7.5-11.1); PLATELET COUNT 228 K/MM3 (134-434); RBC 5.35 M/mm3 (4.00-5.60); WHITE BLOOD COUNT 12.3 K/mm3 (4.0-10.0)
[2019-10-24 07:30] LABS: ALBUMIN 3.4 g/dl (3.4-5.0); BILIRUBIN,TOTAL 0.7 mg/dL (0.2-1); BLOOD UREA NITROGEN 22.9 mg/dL (7-18); CALCIUM 9.1 mg/dL (8.5-10.1); CREATININE 1.3 mg/dL (0.55-1.3); POTASSIUM 3.3 mmol/L (3.5-5.1); TOT PROT 7.1 g/dl (6.4-8.2)
[2019-10-24] MEDS ORDERED: POTASSIUM CHLORIDE TABS 20 MEQ TABLET.ER (FP) PO ONE (08:03)
--- NOTE | 2019-10-24 09:53 | DS ---
Physical Exam: SUBJECTIVE: Patient seen and examined. States that he feels better. OBJECTIVE: Vital Signs Period Temp Pulse Resp BP Sys/Segura Pulse Ox Last 24 Hr 97.7 F-98.1 F 57-68 20-20 113-143/62-93 95 PHYSICAL EXAM LABS Laboratory Results - last 24 hr 10/24/19 10/24/19 10/24/19 06:25 06:25 06:25 WBC 12.3 H RBC 5.35 Hgb 15.3 Hct 44.7 MCV 83.5 MCH 28.6 MCHC 34.2 RDW 14.0 Plt Count 228 MPV 8.1 PTT (Actin FS) 36.5 Sodium 138 Potassium 3.3 L Chloride 100 Carbon Dioxide 30 Anion Gap 7 L BUN 22.9 H Creatinine 1.3 Est GFR (CKD-EPI)AfAm 66.83 Est GFR (CKD-EPI)NonAf 57.66 Random Glucose 102 Calcium 9.1 Total Bilirubin 0.7 AST 49 H ALT 60 Alkaline Phosphatase 76 Total Protein 7.1 Albumin 3.4 HOSPITAL COURSE: Date of Admission:10/19/19 Date of Discharge: 10/24/19 64 M PMH HTN presented to the ED with facial droop and blurry vision is admitted for a CVA affecting CN and VII #CVA Head CT negative Brain MRI shows multiple acute infarctions, left cerebellar hemisphere, multiple infarcts right and left occipital lobes. 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 Home event monitor on dc outpt Physical Therapy walked 65 ft Atorvastatin 80 mg HS given f/u with Dr. Pinto Tele monitor showed episodes of paroxysmal A-fib- in and out of sinus rhythm Discussed with Dr. Houston, overnight A-fib on tele confirmed, likely source of emboli Discussed with Dr. Babcock- Started pt on Eliquis 5 BID Cardio to start Amiodarone 400mg loading for 1 week, then 200mg maintenance F/u with TFT, LFT Discussed with SW, pt to be sent to [facility] on dc #Hypokalemia potassium repleted #HTN will cont HCTZ Will monitor BP DVT ppx Eliquis FEN Monitor CMP Dysphagia minced Dispo Stable for D/C to [facility] Minutes to complete discharge: 36 Discharge Summary Problems reviewed: Yes Reason For Visit: NEW INFARCTION OF CEREBELLUM Current Active Problems New cerebellar infarct (Acute) Condition: Improved - Instructions Diet, Activity, Other Instructions: You presented to the hospital due to dizziness and a facial droop. You had an MRI performed which showed evidence of multiple acute strokes. Your medical scheduler showed evidence of an abnormal heart rhythm and you were diagnosed with atrial fibrillation. You were started on a blood thinning medication to reduce the risk of future egan and also medication to help control your abnormal heart rhythm. You are being discharged to a senior living for further rehab and medical care. Medication Changes: 1. Continue Amiodarone 400mg once daily until 10/28/19, at this time stop taking 400mg and continue taking only 200mg once daily. 2. Continue taking Eliquis 5mg twice a day as this will help decrease your risk of further strokes. 3. Continue taking Atorvastatin 80mg once daily. 4. You may continue using Artificial tears 1 drop to both eyes up to twice a day as needed for dry eyes. Follow up with the following physicians: 1. Please follow up with your primary care provider within one week of discharge for further management of your medical conditions and to discuss the medications that were started while you were in the hospital. 2. Please follow up with Dr. García, Cardiology, within 1 week of discharge to discuss your echocardiogram, further management of your new diagnosis of atrial fibrillation and to discuss a director long term care event monitor to monitor your cardiac rhythm and rate. 3. Please follow up with Dr. Pinto, Neurology, within 1 week of discharge for further management of your recent strokes. Activity and Diet 1. Please monitor your diet as you need to intake foods with less salt and drink plenty of fluids. 2. You have been started on a blood thinning medication, this increases your risk of bleeding. Please take extra care to avoid falls. If you notice increased nose bleeds, blood in your urine, blood in your stool, increased confusion, or other concerning symptoms please speak with your primary care doctor or return to the ER immediately. Continue all your other medications as prescribed Please return to the ER if you have any signs or symptoms of chest pain, shortness of breath, uncontrollable fever, chills, nausea, vomiting, numbness, tingling, or weakness in any part of your body, changes in vision, or slurred speech. Please return to the ER if symptoms persist, worsen, or new symptoms arise. Referrals: Jannet Merida MD [Staff Physician] - Augustus García MD [Staff Physician] - Pamella Pinto MD [Staff Physician] - Disposition: ASSISTED FACILITY - Home Medications Comprehensive Discharge Medication List: Ambulatory Orders Hydrochlorothiazide 25 mg PO DAILY 10/21/19 Amiodarone HCl [Cordarone -] 400 mg PO DAILY tablet 10/24/19 Apixaban [Eliquis -] 5 mg PO BID tablet 10/24/19 Atorvastatin Ca [Lipitor] 80 mg PO HS tablet 10/24/19 Polyvinyl Alcohol [Artificial Tears] 1 drop OU BID PRN drops 10/24/19 This patient is new to me today: Yes Date on this admission: 10/24/19 Emergency Visit: Yes ED Registration Date: 10/19/19 Care time: The patient presented to the Emergency Department on the above date a nd was hospitalized for further evaluation of their emergent condition. Critical Care patient: No - Discharge Referral Referred to [facility] No ATTENDING PHYSICIAN STATEMENT I saw and evaluated the patient. I reviewed the resident's note and discussed the case with the resident. I agree with the resident's findings and plan as documented. SUBJECTIVE: OBJECTIVE: ASSESSMENT AND PLAN:
[2019-10-24 09:54] VITALS: BP 116/73; PULSE 61; TEMP 98
[2019-10-24] MEDS: HYDROCHLOROTHIAZIDE 25 MG TABLET (FP) PO SCH (10:18)
[2019-10-24] MEDS: ASPIRIN COATED 81 MG TABLET.EC PO SCH (10:18)
[2019-10-24] MEDS: APIXABAN 5 MG TABLET PO SCH (10:18)
[2019-10-24] MEDS: AMIODARONE HCL 200 MG TABLET PO SCH (10:19)
--- NOTE | 2019-10-24 11:07 | PN ---
Progress Note, DAY CARE HOME PROVIDER - Note Progress Note: Selected Entries 10/22/19 10/22/19 10/23/19 10:00 18:00 03:00 Breakfast 75% Diet Tolerated Well Supper 75% Temperature 97.4 F L 10/23/19 10/23/19 10/23/19 05:52 08:17 10:00 Breakfast 75% Diet Tolerated Well Supper Temperature 97.1 F L 97.8 F 10/23/19 10/23/19 10/23/19 14:00 18:00 20:59 Breakfast Diet Tolerated Fair Supper 50% Temperature 98 F 97.7 F 97.8 F 10/24/19 10/24/19 10/24/19 01:25 09:00 09:32 Breakfast 100% Diet Tolerated Well Supper Temperature 98.1 F 98.0 F 10/24/19 10:00 Breakfast Diet Tolerated Supper Temperature 98.0 F Left facial remains complete. Eating well.Still on dys chopped /thin. Concur with acute rehab. Continue speech/swallow tx. Upgrade diet at [place].
--- NOTE | 2019-10-24 14:45 | DS ---
Physical Exam: SUBJECTIVE: Patient seen and examined. States that he is feeling stronger and feels that his voice and speech have improved. Patient states he is ready to go to rehab to get more aggressive PT and feels better today compared to yesterday. OBJECTIVE: Vital Signs Period Temp Pulse Resp BP Sys/Segura Pulse Ox Last 24 Hr 97.7 F-98.1 F 57-68 20-20 116-143/73-93 95-95 PHYSICAL EXAM GENERAL: The patient is awake, alert, and fully oriented, in no acute distress. HEAD: Normal with no signs of trauma. EYES: PERRL, lateral gaze palsy left eye. Right eye EOMI normal ENT: MMM NECK: Trachea midline, full range of motion, supple. LUNGS: Breath sounds equal, clear to auscultation bilaterally, no wheezes, no crackles, no accessory muscle use. HEART: Regular rate and rhythm, S1, S2 without murmur, rub or gallop. ABDOMEN: Soft, nontender, nondistended, normoactive bowel sounds, no guarding, no rebound, no hepatosplenomegaly, no masses. EXTREMITIES: 2+ pulses, warm, well-perfused, no edema. 5/5 strength bilateral upper and lower extremities. NEUROLOGICAL: Cranial nerves II through XII grossly intact except for cranial nerve 6 - lateral gaze palsy present in left eye. Normal speech, gait not observed. Left sided facial droop present, PSYCH: appropriate mood and affect SKIN: Warm, dry, normal turgor, no rashes or lesions noted. LABS Laboratory Results - last 24 hr 10/24/19 10/24/19 10/24/19 06:25 06:25 06:25 WBC 12.3 H RBC 5.35 Hgb 15.3 Hct 44.7 MCV 83.5 MCH 28.6 MCHC 34.2 RDW 14.0 Plt Count 228 MPV 8.1 PTT (Actin FS) 36.5 Sodium 138 Potassium 3.3 L Chloride 100 Carbon Dioxide 30 Anion Gap 7 L BUN 22.9 H Creatinine 1.3 Est GFR (CKD-EPI)AfAm 66.83 Est GFR (CKD-EPI)NonAf 57.66 Random Glucose 102 Calcium 9.1 Total Bilirubin 0.7 AST 49 H ALT 60 Alkaline Phosphatase 76 Total Protein 7.1 Albumin 3.4 HOSPITAL COURSE: Date of Admission:10/19/19 Date of Discharge: 10/24/19 64 y/o/m with PMHx of HTN presented to the ED with facial droop and blurry vision. Patient was admitted for a CVA. Head CT was negative but MRI showed multiple acute infarctions in left cerebellar hemisphere and multiple infarcts in right and left occipital lobes. Brain MRA showed severe stenosis of the basilar artery with atherosclerotic changes. Carotid doppler showed intimal thi ckening and small plaque on right common carotid bifurcation and intimal thickening and moderate plaque on left common carotid bifurcation. Patient was seen by Neurology. Patient was monitored on tele and was found to have intermittent atrial fibrillation. Patient was seen by cardiology and started on amiodarone 400mg daily for one week and then to continue amiodarone 200mg daily and also started on Eliquis 5mg BID. Echocardiogram did not show any significant abnormalities. Patient was seen by speech/swallow specialist and started on dysphagia chopped diet with thin liquis. Patient discharged to [facility] for continued care and rehab. Patient was started on Atorvastatin 80mg daily as well. Minutes to complete discharge: 36 Discharge Summary Problems reviewed: Yes Reason For Visit: NEW INFARCTION OF CEREBELLUM Condition: Improved - Instructions Diet, Activity, Other Instructions: You presented to the hospital due to dizziness and a facial droop. You had an MRI performed which showed evidence of multiple acute strokes. Your production counter showed evidence of an abnormal heart rhythm and you were diagnosed with atrial fibrillation. You were started on a blood thinning medication to reduce the risk of future egan and also medication to help control your abnormal heart rhythm. You are being discharged to a halfway for further rehab and medical care. Medication Changes: 1. Continue Amiodarone 400mg once daily until 10/27/19, at this time stop taking 400mg and continue taking only 200mg once daily. 2. Continue taking Eliquis 5mg twice a day as this will help decrease your risk of further strokes. 3. Continue taking Atorvastatin 80mg once daily. 4. You may continue using Artificial tears 1 drop to both eyes up to twice a day as needed for dry eyes. Follow up with the following physicians: 1. Please follow up with your primary care provider within one week of discharge for further management of your medical conditions and to discuss the medications that were started while you were in the hospital. 2. Please follow up with Dr. García, Cardiology, within 1 week of discharge to discuss your echocardiogram, further management of your new diagnosis of atrial fibrillation and to discuss a superintendent terminal event monitor to monitor your cardiac rhythm and rate. 3. Please follow up with Dr. Pinto, Neurology, within 1 week of discharge for further management of your recent strokes. Activity and Diet 1. Please monitor your diet as you need to intake foods with less salt and drink plenty of fluids. 2. You have been started on a blood thinning medication, this increases your risk of bleeding. Please take extra care to avoid falls. If you notice increased nose bleeds, blood in your urine, blood in your stool, increased confusion, or other concerning symptoms please speak with your primary care doctor or return to the ER immediately. Continue all your other medications as prescribed Please return to the ER if you have any signs or symptoms of chest pain, shortness of breath, uncontrollable fever, chills, nausea, vomiting, numbness, tingling, or weakness in any part of your body, changes in vision, or slurred speech. Please return to the ER if symptoms persist, worsen, or new symptoms arise. Referrals: Jannet Merida MD [Staff Physician] - Augustus García MD [Staff Physician] - Pamella Pinto MD [Staff Physician] - Disposition: SNF FACILITY - Home Medications Comprehensive Discharge Medication List: Ambulatory Orders Hydrochlorothiazide 25 mg PO DAILY 10/21/19 Amiodarone HCl [Cordarone -] 400 mg PO DAILY tablet 10/24/19 Apixaban [Eliquis -] 5 mg PO BID tablet 10/24/19 Atorvastatin Ca [Lipitor] 80 mg PO HS tablet 10/24/19 Polyvinyl Alcohol [Artificial Tears] 1 drop OU BID PRN drops 10/24/19 This patient is new to me today: Yes Date on this admission: 10/24/19 Emergency Visit: Yes ED Registration Date: 10/19/19 Care time: The patient presented to the Emergency Department on the above date and was hospitalized for further evaluation of their emergent condition. Critical Care patient: No - Discharge Referral Referred to [facility] No ATTENDING PHYSICIAN STATEMENT I saw and evaluated the patient. I reviewed the resident's note and discussed the case with the resident. I agree with the resident's findings and plan as documented. SUBJECTIVE: OBJECTIVE: ASSESSMENT AND PLAN:
[2019-10-24 15:06] LABS: METHYLMALONIC ACID- 127
--- NOTE | 2019-10-24 18:18 | PN ---
Progress Note, Physician History of Present Illness: 64-year-old male with PMHx of HTN admitted with CVA in the setting of new onset AFib- now on eliquis. Pending dispo to facility. Today: Patient seen and examined at bedside in NAD Had no active c/o was alert and conversing. Facial droop seems improved and ambulating more with walker. Denies any new focal deficits, and has improvement on speech. - Objective Vital Signs: Vital Signs Temperature 98.0 F 10/24/19 10:00 Pulse Rate 61 10/24/19 10:00 Respiratory Rate 20 10/24/19 10:00 Blood Pressure 116/73 10/24/19 10:00 O2 Sat by Pulse Oximetry (%) 95 10/24/19 09:00 Labs: CBC, BMP 10/24/19 06:25 10/24/19 06:25 INR, PTT INR 1.07 (0.83-1.09) 10/19/19 14:20 Impression/Plan Impression/Plan: 1- CVA - Embolic stroke Afib episodes on Tele with post sinus bryan MRI - Multiple acute infactions : left cerebellar hemisphere multiple infarctions in the right and left occipital lobes R>L. Neuro on board Dispo planning-->to [place] [facility] TTE unremarkable; does not want RHEA at this time ASA 81 mg qd High intensity Statin Eliquis BID F/U Cardio and neuro as o/p Afib On eliquis 5 mg BID On amiodorone Cardio on board-Recs appreciated 2- HTN Monitor BP Hydrochlorothiazide 3- Supportive care DVT Px- eliquis DISPO PENDING PLACEMENT AND INSURANCE AUTH Visit type - Emergency Visit Emergency Visit: Yes ED Registration Date: 10/19/19 Care time: The patient presented to the Emergency Department on the above date and was hospitalized for further evaluation of their emergent condition. - New Patient This patient is new to me today: No - Critical Care Critical Care patient: No - Discharge Referral Referred to [facility] No
[2019-10-27 15:17] LABS: HOMOCYSTINE-PLASMA OR SERUM 10.4 umol/L
== END 2019-10-24 13:08 | DRG 65 ==
LOC: JER 13:49 → JERBED 18:12 → J4W 22:52
PROVIDERS: ADMIT Internal Medicine; ATTEND Internal Medicine
DX: I63.9 Cerebral infarction, unspecified (principal); I47.1 Supraventricular tachycardia; I48.91 Unspecified atrial fibrillation; I10 Essential (primary) hypertension; R29.810 Facial weakness; E87.6 Hypokalemia; R00.1 Bradycardia, unspecified; R29.709 NIHSS score 9
CPT/HCPCS: 36415; 70450-TC; 70544-TC; 70551-TC; 71045-TC-FY; 80053; 80061; 82136; 82550; 82553; 82962; 83036; 83721; 83735; 83918; 84100; 84443; 84484; 85025; 85027; 85610; 85651; 85730; 86140; 86618; 86850; 86900; 86901; 93005; 93010; 93306-TC; 93880-TC; 97116-GP; 97161-GP; 99285-25; J1644; J7030